=== PATIENT | female | born 1940 | race Caucasian/White ===

== ENCOUNTER → 2018-07-10 08:05 | Outpatient (REF) | payer MEDICARE, SELFPAY ==
[2018-07-10 08:39] LABS: Hemoglobin A1C% w Est Avg Glu 6.6 % (4.0-6.0)
[2018-07-10 08:50] LABS: Add Manual Diff / Slide Review NO; Basophils Percent Auto 0.6 % (0-2); Eosinophils Percent Auto 5.6 % (2-4); Hematocrit 40.1 % (36-46); Hemoglobin 13.8 g/dL (12.0-16.0); Lymphocytes Percent Auto 30.5 % (25-40); Mean Corpuscular HGB Conc 34.4 % (30-36); Mean Corpuscular Hemoglobin 28.3 PG (26-34); Monocytes Percent Auto 10.4 % (3-14); Neutrophils Absolute Auto 2200 /uL (3000-5900); Neutrophils Percent Auto 52.9 % (50-75); Platelet Count 148 X10^3/uL (150-400); Red Blood Cell Count 4.89 X10^6/uL (4.0-5.2); Red Cell Distribution Width 14.5 % (11.6-14.8); White Blood Cell Count 4.1 X10^3/uL (4.5-11.0)
[2018-07-10 08:55] LABS: Blood Urea Nitrogen 14 mg/dL (7-17); Calcium 9.1 mg/dL (8.4-10.2); Carbon Dioxide 29 mmol/L (22-32); Chloride 98 mmol/L (98-107); Estimated Glomerular Filt Rate > 60.0 mL/min (>60); Glucose 83 mg/dL (80-110); HEMOLYSIS < 15 (0-50); Potassium 4.3 mmol/L (3.4-5.1); Sodium 134 mmol/L (137-145)
[2018-07-10 09:22] LABS: Thyroid Stimulating Hormone 2.94 uIU/mL (0.47-4.68)
== END ==
LOC: LAB 08:05
PROVIDERS: Visit Provider Nurse Practitioner Family
DX: E11.9 Type 2 diabetes mellitus without complications (principal)
CPT/HCPCS: 36415; 80048; 83036; 84443; 85025

== ENCOUNTER → 2018-10-09 10:02 | Outpatient (REF) | payer MEDICARE, SELFPAY ==
[2018-10-09 11:11] LABS: Add Manual Diff / Slide Review NO; Basophils Percent Auto 0.7 % (0-2); Hematocrit 44.6 % (36-46); Lymphocytes Percent Auto 28.5 % (25-40); Mean Corpuscular HGB Conc 33.7 % (30-36); Mean Corpuscular Hemoglobin 28.3 PG (26-34); Monocytes Percent Auto 8.6 % (3-14); Neutrophils Absolute Auto 3000 /uL (3000-5900); Neutrophils Percent Auto 56.2 % (50-75); Platelet Count 170 X10^3/uL (150-400); Red Blood Cell Count 5.31 X10^6/uL (4.0-5.2); Red Cell Distribution Width 14.3 % (11.6-14.8); White Blood Cell Count 5.3 X10^3/uL (4.5-11.0)
[2018-10-09 11:32] LABS: BUN Creatinine Ratio 17.1 (6-22); Blood Urea Nitrogen 12 mg/dL (7-17); Calcium 9.5 mg/dL (8.4-10.2); Carbon Dioxide 30 mmol/L (22-32); Chloride 97 mmol/L (98-107); Estimated Glomerular Filt Rate > 60.0 mL/min (>60); Glucose 116 mg/dL (80-110); HEMOLYSIS < 15 (0-50); Potassium 4.7 mmol/L (3.4-5.1); Sodium 139 mmol/L (137-145)
[2018-10-09 12:15] LABS: Hemoglobin A1C% w Est Avg Glu 7.2 % (4.0-6.0)
== END ==
LOC: LAB 10:02
PROVIDERS: Visit Provider Nurse Practitioner Family
DX: E11.9 Type 2 diabetes mellitus without complications (principal)
CPT/HCPCS: 36415; 80048; 83036; 85025

== ENCOUNTER → 2019-04-04 13:31 | Outpatient (ROUT) | payer MEDICARE, SELFPAY ==
[2019-04-04 13:46] LABS: Add Manual Diff / Slide Review NO; Basophils Absolute Auto 0 /uL (0-100); Basophils Percent Auto 0.9 % (0-2); Eosinophils Absolute Auto 200 /uL (0-450); Eosinophils Percent Auto 4.9 % (2-4); Hematocrit 41.1 % (36-46); Hemoglobin 13.8 g/dL (12.0-16.0); Lymphocytes Absolute Auto 1000 /uL (1100-4500); Lymphocytes Percent Auto 30.2 % (25-40); Mean Corpuscular HGB Conc 33.7 % (30-36); Mean Corpuscular Volume 83.2 fL (80-100); Monocytes Absolute Auto 400 /uL (0-900); Monocytes Percent Auto 12.3 % (3-14); Neutrophils Absolute Auto 1800 /uL (1500-7000); Neutrophils Percent Auto 51.7 % (50-75); Platelet Count 166 X10^3/uL (150-400); Red Blood Cell Count 4.94 X10^6/uL (4.0-5.2); Red Cell Distribution Width 14.6 % (11.6-14.8); White Blood Cell Count 3.4 X10^3/uL (4.5-11.0)
[2019-04-04 13:58] LABS: Hemoglobin A1C% w Est Avg Glu 8.4 % (4.0-6.0)
[2019-04-04 14:30] LABS: Blood Urea Nitrogen 9 mg/dL (7-17); Calcium 9.3 mg/dL (8.4-10.2); Carbon Dioxide 25 mmol/L (22-32); Chloride 96 mmol/L (98-107); Estimated Glomerular Filt Rate > 60.0 mL/min (>60); Glucose 129 mg/dL (80-110); HEMOLYSIS < 15 (0-50); Sodium 133 mmol/L (137-145)
[2019-04-04 15:04] LABS: Thyroid Stimulating Hormone 4.27 uIU/mL (0.47-4.68)
[2019-04-04 15:19] LABS: Vitamin B12 > 1000 pg/mL (239-931)
== END ==
PROVIDERS: Visit Provider Nurse Practitioner Family
DX: E11.9 Type 2 diabetes mellitus without complications (principal); E03.9 Hypothyroidism, unspecified; F03.90 Unspecified dementia, unspecified severity, without behavioral disturbance, psychotic disturbance, mood disturbance, and anxiety
CPT/HCPCS: 36415; 80048; 82607; 83036; 84443; 85025

== ENCOUNTER 2019-08-13 14:52 | Emergency (ER) | payer MEDICARE, SELFPAY ==
[2019-08-13 15:07] VITALS: BP 147/59; PULSE 81; RESP 20; TEMP 36.7; O2SAT 100
--- NOTE | 2019-08-13 15:12 | ED_ITS ---
HPI - Dental/Oral General Chief complaint: Dental/Oral Stated complaint: toothache,unbareable pain Time Seen by Provider: 08/13/19 15:06 Source: patient Mode of arrival: Ambulatory Limitations: no limitations History of Present Illness HPI Narrative: Patient is a 79-year-old female with history of dementia presenting with uncontrolled dental pain. She was just started on hydrocodone and Augmentin today. She actually denies any dental pain she is complaining of frequent painful urination. She has no other complaints except that her mouth is dry. Related Data Home Medications Medication Instructions Recorded Confirmed fluticasone propionate 1 spray INTRANASAL DAILY #0 12/16/16 08/13/19 acetaminophen 325 - 650 mg PO Q4HP PRN 08/13/19 08/13/19 acidophilus-sporogenes 2 tab PO DAILY 08/13/19 08/13/19 [Acidophilus Ex Str (L. sporog)] amlodipine 5 mg PO DAILY 08/13/19 08/13/19 aspirin 81 mg PO DAILY 08/13/19 08/13/19 atorvastatin 40 mg PO DAILY 08/13/19 08/13/19 cholecalciferol (vitamin D3) 400 unit PO DAILY 08/13/19 08/13/19 [Vitamin D3] cyanocobalamin (vitamin B-12) 2,000 mcg PO DAILY 08/13/19 08/13/19 [Vitamin B-12] gabapentin 300 mg PO BEDTIME 08/13/19 08/13/19 hydrocortisone 1 applic TOPICAL BID 08/13/19 08/13/19 insulin aspart U-100 [Novolog See Rx Instructions .ROUTE .COMPLEX 08/13/1908/13 Flexpen U-100 Insulin] insulin detemir U-100 [Levemir 3 unit SUBCUT QPM 08/13/19 08/13/19 FlexTouch U-100 Insuln] insulin detemir U-100 [Levemir 25 unit SUBCUT QAM 08/13/19 08/13/19 FlexTouch U-100 Insuln] levothyroxine 88 mcg PO DAILY 08/13/19 08/13/19 loratadine 10 mg PO DAILY 08/13/19 08/13/19 lorazepam 0.5 mg PO BID PRN 08/13/19 08/13/19 magnesium oxide 400 mg PO DAILY 08/13/19 08/13/19 melatonin 3 mg PO BEDTIME 08/13/19 08/13/19 pantoprazole 40 mg PO DAILY 08/13/19 08/13/19 sennosides [Senna Lax] 8.6 mg PO BEDTIME 08/13/19 08/13/19 Previous Rx's Medication Instructions Recorded potassium chloride [Klor-Con M10] 10 meq PO BID #60 tab 08/17/17 Allergies Allergy/AdvReac Type Severity Reaction Status Date / Time rosiglitazone [ROSIGLITAZONE] Allergy Mild ECZEMA Unverified 02/27/18 12:15 cephalexin [CEPHALEXIN] Allergy Unknown Unverified 02/27/18 12:15 cyclobenzaprine Allergy Unknown Unverified 02/27/18 12:15 [CYCLOBENZAPRINE] lisinopril [LISINOPRIL] Allergy Unknown Unverified 02/27/18 12:15 meloxicam [MELOXICAM] Allergy Unknown Unverified 02/27/18 12:15 sitagliptin [From JANUVIA] Allergy Unknown Unverified 02/27/18 12:15 Review of Systems Review of Systems ROS Unobtainable: All systems reviewed & are unremarkable except as noted in HPI and below Constitutional Constitutional: Denies chills, Denies fever(s), Denies lethargy and Denies weakness Eyes Eyes: Denies change in vision, Denies eye discharge, Denies irritation and Denies loss of vision ENT Ears, Nose, Mouth, and Throat: Reports as per HPI Cardiovascular Cardiovascular: Denies chest pain, Denies irregular heart rhythm, Denies lightheadedness, Denies palpitations, Denies dyspnea, Denies dyspnea on exertion and Denies orthopnea Respiratory Respiratory: Denies cough, Denies dyspnea, Denies dyspnea on exertion and Denies wheezing Gastrointestinal Gastrointestinal: Denies abdominal pain, Denies change in bowel habits, Denies diarrhea, Denies nausea and Denies vomiting Musculoskeletal Musculoskeletal: Denies back pain, Denies muscle weakness, Denies numbness and Denies tingling Integumentary/Breasts Skin/Breast: Denies pruritus, Denies erythema, Denies rash and Denies wounds Neurologic Neurologic: Denies loss of vision, Denies numbness, Denies tingling and Denies weakness Endocrine Endocrine: Denies palpitations Allergic/Immunologic Allergic/Immunologic: Denies wheezing [facility] Medical History CVA (cerebral vascular accident) (Acute) Elevated CPK (Acute) Encephalitis, viral (Acute) Hyponatremia (Acute) Urinary retention (Acute) Exam Initial Vital Signs Initial Vital Signs: Vital Signs Temperature 98.1 F 08/13/19 15:07 Pulse Rate 81 08/13/19 15:07 Respiratory Rate 20 08/13/19 15:07 Blood Pressure 147/59 H 08/13/19 15:07 Pulse Oximetry 100 08/13/19 15:07 GENERAL: Pleasant alert elderly and in no acute distress. HEENT: Head atraumatic,EOMI, pupils reactive, face symmetric, moist mucous membranes MOUTH: No dental abscess mouth slightly dry CARDIOVASCULAR: Regular rate and rhythm without murmurs, rubs or gallops. RESPIRATORY: Breath sounds equal bilaterally, no wheezes rales or rhonchi. ABDOMEN: Soft, nontender. Normoactive bowel sounds all 4 quadrants. No guarding or rebound. EXTREMITIES: Normal range of motion, no clubbing or edema. Neurovascularly inta ct NEUROLOGICAL: Alert and oriented x4.Normal gait and speech. Cranial nerves II through XII grossly intact. SKIN: Warm, dry, no laceration, no petechiae, no rashes or lesions. Course Orders Ordered: ED Orders 08/13/19 15:24 Urine Culture Stat Urine Microscopic Stat Vital Signs Vital signs: Vital Signs - 8 hr 08/13/19 15:07 08/13/19 16:32 Temperature 98.1 F Pulse Rate 81 79 Respiratory Rate 20 20 Blood Pressure 147/59 H Blood Pressure [Left Arm] 125/59 L Pulse Oximetry 100 98 MDM - Dental/Oral Lab Data Attestation: I reviewed the patient's lab results. Labs: Lab Results 08/13/19 Range/Units 15:24 Urine RBC 0-1/hpf (0-5/HPF) Urine WBC 30-100/hpf H (0-5/HPF) Ur Squamous Epith Cells 1-5 /hpf (0-5/HPF) Amorphous Sediment 1+ Urine Bacteria Moderate (10-30) H (None) Urine Mucus 1+ H (Negative) Ur Culture Indicated? Specimen cultured Urine Dip Bedside Urine Glucose 500 mg/dl Bedside Urine Bilirubin - Negative Bedside Urine Ketone +/- 5 Urine Specific Vergas 1.015 Bedside Urine Occult Blood +/- Bedside Urine pH 6.0 Bedside Urine Protein + 30 Bedside Urine Urobilinogen - Negative Bedside Urine Nitrite - Negative Bedside Urine Leukocytes +++ 500 Esterase MDM Narrative Medical decision making narrative: POA at bedside updated on patient's symptoms test results. Patient currently already on appropriate medication her both UTI and dental infection. Patient required no additional pain medication in the emergency department Discharge Plan Departure Patient Disposition: Home Clinical Impression: Pain, dental, Acute UTI Discharge Date/Time: 08/13/19 16:45 Instructions: DI for Dental Pain Activity Restrictions/Additional Instructions: *You have been diagnosed with dental pain and UTI *What to do: You are already on medications for dental pain and bladder infection including Augmentin and Vicodin. At this time need follow-up with a dentist. The antibiotic will also treat a UTI which also have *Continue to take medications as directed *Follow up with your primary care provider in 2-3 days *Return to ER if you should have increased confusion, increased swelling face or any new, worsening or concerning symptoms Prescriptions: No Action fluticasone propionate 16 GM spray,suspension 1 spray Intranasal DAILY Qty: 0 RF: 0 potassium chloride [Klor-Con M10] 10 MEQ tablet,ER particles/crystals 10 meq PO BID Qty: 60 RF: 0 atorvastatin 40 mg tablet 40 mg PO DAILY RF: 0 amlodipine 5 mg tablet 5 mg PO DAILY RF: 0 aspirin 81 mg Tablet,Delayed Release (Dr/Ec) 81 mg PO DAILY RF: 0 gabapentin 300 mg capsule 300 mg PO BEDTIME RF: 0 hydrocortisone 2.5 % cream 1 applic TOPICAL BID RF: 0 Acidophilus Ex Str (L. sporog) 35 million- 25 million cell Tablet 2 tab PO DAILY RF: 0 Levemir FlexTouch U-100 Insuln 100 unit/mL (3 mL) insulin pen 25 unit SUBCUT QAM RF: 0 sennosides [Senna Lax] 8.6 mg Tablet 8.6 mg PO BEDTIME RF: 0 cyanocobalamin (vitamin B-12) [Vitamin B-12] 1,000 mcg Tablet 2,000 mcg PO DAILY RF: 0 melatonin 3 mg Tablet 3 mg PO BEDTIME RF: 0 levothyroxine 88 mcg tablet 88 mcg PO DAILY RF: 0 lorazepam 0.5 mg Tablet 0.5 mg PO BID PRN (Reason: Anxiety) RF: 0 cholecalciferol (vitamin D3) [Vitamin D3] 400 unit Tablet 400 unit PO DAILY RF: 0 loratadine 10 mg Tablet 10 mg PO DAILY RF: 0 Novolog Flexpen U-100 Insulin 100 unit/mL (3 mL) insulin pen See Rx Instructions .ROUTE .COMPLEX RF: 0 Levemir FlexTouch U-100 Insuln 100 unit/mL (3 mL) insulin pen 3 unit SUBCUT QPM RF: 0 magnesium oxide 400 mg magnesium Tablet 400 mg PO DAILY RF: 0 acetaminophen 325 MG tablet 325 - 650 mg PO Q4HP PRN (Reason: headache or minor pain) RF: 0 pantoprazole 40 MG tablet,delayed release (DR/EC) 40 mg PO DAILY RF: 0
--- NOTE | 2019-08-13 15:13 | PC.NURSE ---
Pt arrived from [facility]. pt with Dementia and is at baseline mentation. Ambulatory with walker. was sent for uncontrollable tooth pain Pt denies tooth pain at this time. Paperwork reports pt taking hydrocodone-APAP and Augmentin. 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
[2019-08-13 15:48] LABS: Amorphous Sediment Urine 1+; Bacteria Urine Moderate (10-30); RBC Urine 0-1/HPF (0-5/HPF); Squamous Epithelial Cell Urine 1-5 /HPF (0-5/HPF); WBC Urine 30-100/HPF (0-5/HPF)
[2019-08-13 15:49] LABS: Culture Indicated Urine Specimen Cultured; Mucus Urine 1+ (Negative)
[2019-08-13 16:32] VITALS: BP 125/59; PULSE 79; RESP 20; O2SAT 98
== END 2019-08-13 16:45 | disposition home or self-care (01) ==
PROVIDERS: Emergency Provider Emergency Medicine
DX: K08.89 Other specified disorders of teeth and supporting structures (principal); N39.0 Urinary tract infection, site not specified
CPT/HCPCS: 81003; 81015; 87077; 87086; 87186; 99282

== ENCOUNTER → 2019-08-18 10:11 | Outpatient (ROUT) | payer MEDICARE, SELFPAY ==
[2019-08-18 10:51] LABS: Hemoglobin 14.7 g/dL (12.0-16.0); Mean Corpuscular HGB Conc 34.3 % (30-36); Mean Corpuscular Hemoglobin 28.6 PG (26-34); Mean Corpuscular Volume 83.3 fL (80-100); Platelet Count 171 X10^3/uL (150-400); Red Blood Cell Count 5.16 X10^6/uL (4.0-5.2); Red Cell Distribution Width 14.4 % (11.6-14.8)
[2019-08-18 11:09] LABS: BUN Creatinine Ratio 13.3 (6-22); Blood Urea Nitrogen 8 mg/dL (7-17); Calcium 9.4 mg/dL (8.4-10.2); Carbon Dioxide 27 mmol/L (22-32); Chloride 96 mmol/L (98-107); Estimated Glomerular Filt Rate > 60.0 mL/min (>60); Glucose 197 mg/dL (80-110); HEMOLYSIS < 15 (0-50); Potassium 4.1 mmol/L (3.4-5.1); Sodium 134 mmol/L (137-145)
== END ==
PROVIDERS: Visit Provider Nurse Practitioner Family
DX: N39.0 Urinary tract infection, site not specified (principal)
CPT/HCPCS: 36415; 80048; 85027

== ENCOUNTER → 2019-09-16 21:31 | Outpatient (ROUT) | payer MEDICARE, SELFPAY ==
[2019-09-16 21:33] LABS: RBC Urine None Seen (0-5/HPF)
[2019-09-16 21:36] LABS: Appearance Urine UA CLEAR; Bilirubin Urine UA NEGATIVE (NEGATIVE); Color Urine UA YELLOW; Glucose Urine UA NEGATIVE (Negative); Ketones Urine UA NEGATIVE (NEGATIVE); Leukocyte Esterase Urine UA 1+ (NEGATIVE); Nitrite Urine UA NEGATIVE (Negative); Occult Blood Urine UA NEGATIVE (Negative); Protein Urine UA NEGATIVE (Negative); Specific Gravity Urine UA <=1.005 (1.000-1.035); Urobilinogen Urine UA 0.2 E.U./dL (0.2)
[2019-09-16 21:39] LABS: pH Urine UA 7.5 (4.5-8.0)
[2019-09-16 21:47] LABS: Bacteria Urine Many (>30); Culture Indicated Urine Specimen Cultured; WBC Urine 1-5/HPF (0-5/HPF)
== END ==
PROVIDERS: Visit Provider Nurse Practitioner Family
DX: R30.0 Dysuria (principal)
CPT/HCPCS: 81001; 87077; 87086; 87186

== ENCOUNTER → 2019-09-25 17:06 | Outpatient (ROUT) | payer MEDICARE, SELFPAY ==
[2019-09-25 17:11] LABS: Appearance Urine UA CLOUDY; Bilirubin Urine UA NEGATIVE (NEGATIVE); Color Urine UA YELLOW; Glucose Urine UA NEGATIVE (Negative); Ketones Urine UA NEGATIVE (NEGATIVE); Leukocyte Esterase Urine UA 1+ (NEGATIVE); Nitrite Urine UA POSITIVE (Negative); Occult Blood Urine UA NEGATIVE (Negative); Protein Urine UA NEGATIVE (Negative); Urobilinogen Urine UA 0.2 E.U./dL (0.2)
[2019-09-25 17:19] LABS: Bacteria Urine Many (>30); Culture Indicated Urine Specimen Cultured; RBC Urine 0-1/HPF (0-5/HPF); Squamous Epithelial Cell Urine 0-1 /HPF (0-5/HPF); WBC Urine 10-30/HPF (0-5/HPF)
== END ==
PROVIDERS: Visit Provider Nurse Practitioner Family
DX: N39.0 Urinary tract infection, site not specified (principal); R30.0 Dysuria
CPT/HCPCS: 81001; 87077; 87086; 87186

== ENCOUNTER → 2019-09-26 07:15 | Outpatient (ROUT) | payer MEDICARE, SELFPAY ==
[2019-09-26 08:16] LABS: Hemoglobin A1C% w Est Avg Glu 8.6 % (4.0-6.0)
[2019-09-26 08:19] LABS: Add Manual Diff / Slide Review NO; Basophils Absolute Auto 0 /uL (0-100); Basophils Percent Auto 0.8 % (0-2); Eosinophils Absolute Auto 300 /uL (0-450); Eosinophils Percent Auto 8.1 % (2-4); Hematocrit 40.2 % (36-46); Hemoglobin 13.6 g/dL (12.0-16.0); Lymphocytes Absolute Auto 1300 /uL (1100-4500); Lymphocytes Percent Auto 33.1 % (25-40); Mean Corpuscular HGB Conc 33.8 % (30-36); Mean Corpuscular Hemoglobin 28.4 PG (26-34); Mean Corpuscular Volume 84.1 fL (80-100); Monocytes Absolute Auto 300 /uL (0-900); Monocytes Percent Auto 8.8 % (3-14); Neutrophils Absolute Auto 1900 /uL (1500-7000); Neutrophils Percent Auto 49.2 % (50-75); Platelet Count 151 X10^3/uL (150-400); Red Blood Cell Count 4.78 X10^6/uL (4.0-5.2); Red Cell Distribution Width 14.6 % (11.6-14.8); White Blood Cell Count 3.8 X10^3/uL (4.5-11.0)
[2019-09-26 08:29] LABS: BUN Creatinine Ratio 12.9 (6-22); Blood Urea Nitrogen 9 mg/dL (7-17); Calcium 9.1 mg/dL (8.4-10.2); Carbon Dioxide 24 mmol/L (22-32); Chloride 99 mmol/L (98-107); Estimated Glomerular Filt Rate > 60.0 mL/min (>60); Glucose 116 mg/dL (80-110); HEMOLYSIS < 15 (0-50); Potassium 4.8 mmol/L (3.4-5.1); Sodium 133 mmol/L (137-145)
[2019-09-26 08:59] LABS: Thyroid Stimulating Hormone 4.12 uIU/mL (0.47-4.68)
[2019-09-26 09:16] LABS: Vitamin B12 > 1000 pg/mL (239-931)
== END ==
PROVIDERS: Visit Provider Nurse Practitioner Family
DX: E11.9 Type 2 diabetes mellitus without complications (principal); R41.0 Disorientation, unspecified; N39.0 Urinary tract infection, site not specified
CPT/HCPCS: 36415; 80048; 82607; 83036; 84443; 85025

== ENCOUNTER → 2019-10-27 08:01 | Outpatient (ROUT) | payer MEDICARE, SELFPAY ==
[2019-10-27 08:24] LABS: Add Manual Diff / Slide Review NO; Basophils Absolute Auto 0 /uL (0-100); Basophils Percent Auto 0.7 % (0-2); Eosinophils Absolute Auto 300 /uL (0-450); Eosinophils Percent Auto 6.9 % (2-4); Hematocrit 41.2 % (36-46); Lymphocytes Absolute Auto 1100 /uL (1100-4500); Lymphocytes Percent Auto 24.8 % (25-40); Mean Corpuscular HGB Conc 34.1 % (30-36); Mean Corpuscular Hemoglobin 28.7 PG (26-34); Mean Corpuscular Volume 84.2 fL (80-100); Monocytes Absolute Auto 400 /uL (0-900); Monocytes Percent Auto 8.3 % (3-14); Neutrophils Absolute Auto 2600 /uL (1500-7000); Neutrophils Percent Auto 59.3 % (50-75); Platelet Count 147 X10^3/uL (150-400); Red Blood Cell Count 4.89 X10^6/uL (4.0-5.2); Red Cell Distribution Width 14.6 % (11.6-14.8); White Blood Cell Count 4.3 X10^3/uL (4.5-11.0)
[2019-10-27 08:42] LABS: Alanine Aminotransferase 77 IU/L (<35); Albumin 3.7 g/dL (3.5-5.0); Albumin Globulin Ratio 1.1 (1.0-2.8); Alkaline Phosphatase 109 U/L (38-126); Aspartate Aminotransferase 64 IU/L (14-36); BUN Creatinine Ratio 13.3 (6-22); Bilirubin Total 1.1 mg/dL (0.2-1.3); Blood Urea Nitrogen 8 mg/dL (7-17); Calcium 9.2 mg/dL (8.4-10.2); Carbon Dioxide 28 mmol/L (22-32); Chloride 100 mmol/L (98-107); Estimated Glomerular Filt Rate > 60.0 mL/min (>60); Globulin 3.4 g/dL (1.7-4.1); Glucose 96 mg/dL (80-110); HEMOLYSIS < 15 (0-50); Potassium 4.4 mmol/L (3.4-5.1); Sodium 136 mmol/L (137-145); Total Protein 7.1 g/dL (6.3-8.2)
== END ==
PROVIDERS: Visit Provider Registered Nurse
DX: R45.1 Restlessness and agitation (principal)
CPT/HCPCS: 36415; 80053; 85025

== ENCOUNTER → 2019-10-28 13:50 | Outpatient (ROUT) | payer MEDICARE, SELFPAY ==
[2019-10-28 13:52] LABS: Bacteria Urine None Seen; RBC Urine None Seen (0-5/HPF)
[2019-10-28 13:54] LABS: Appearance Urine UA CLEAR; Bilirubin Urine UA NEGATIVE (NEGATIVE); Color Urine UA YELLOW; Glucose Urine UA NEGATIVE (Negative); Ketones Urine UA NEGATIVE (NEGATIVE); Leukocyte Esterase Urine UA TRACE (NEGATIVE); Nitrite Urine UA NEGATIVE (Negative); Occult Blood Urine UA NEGATIVE (Negative); Protein Urine UA NEGATIVE (Negative)
[2019-10-28 14:10] LABS: Culture Indicated Urine Cult Not Indicated; Squamous Epithelial Cell Urine 5-10 /HPF (0-5/HPF); WBC Urine 5-10/HPF (0-5/HPF)
== END ==
PROVIDERS: Visit Provider Nurse Practitioner Family
DX: R35.0 Frequency of micturition (principal)
CPT/HCPCS: 81001

== ENCOUNTER 2019-11-24 17:47 | Emergency (ER) | payer MEDICARE, SELFPAY ==
[2019-11-24 18:00] VITALS: BP 146/56; PULSE 77; RESP 18; O2SAT 97
--- NOTE | 2019-11-24 18:00 | ED.CHESTPAIN ---
HPI - Chest Pain General Chief Complaint: Chest Pain Stated Complaint: chest pain Time Seen by Provider: 11/24/19 17:59 Source: patient and EMS Mode of arrival: EMS Limitations: no limitations History of Present Illness HPI narrative: 79-year-old female nonsmoker is pleasantly confused and presents by EMS with the chief complaint of an episode of chest pain this morning which is long since resolved. She is not the greatest historian but denies any provocation, palliation or radiation. She denies cardiac equivalent such as weakness, lightheadedness, vomiting, diaphoresis or other bothersome symptoms. Once her friends arrived they state that she has had frequent trouble with urination including UTIs, incontinence MD complaint: chest pain Onset (ago): hour(s) Duration: now resolved Severity: mild Quality: tightness Pain radiation: none Relieving factors: nothing Exacerbating factors: nothing Treatments prior to arrival chest pain: none Related Data On Oral Contraceptives: No Home Medications Medication Instructions Recorded Confirmed fluticasone propionate 1 spray INTRANASAL DAILY #0 12/16/16 08/13/19 acetaminophen 325 - 650 mg PO Q4HP PRN 08/13/19 08/13/19 acidophilus-sporogenes 2 tab PO DAILY 08/13/19 08/13/19 [Acidophilus Ex Str (L. sporog)] amlodipine 5 mg PO DAILY 08/13/19 08/13/19 aspirin 81 mg PO DAILY 08/13/19 08/13/19 atorvastatin 40 mg PO DAILY 08/13/19 08/13/19 cholecalciferol (vitamin D3) 400 unit PO DAILY 08/13/19 08/13/19 [Vitamin D3] cyanocobalamin (vitamin B-12) 2,000 mcg PO DAILY 08/13/19 08/13/19 [Vitamin B-12] gabapentin 300 mg PO BEDTIME 08/13/19 08/13/19 hydrocortisone 1 applic TOPICAL BID 08/13/19 08/13/19 insulin aspart U-100 [Novolog See Rx Instructions .ROUTE .COMPLEX 08/13/19 08/13/19 Flexpen U-100 Insulin] insulin detemir U-100 [Levemir 3 unit SUBCUT QPM 08/13/19 08/13/19 FlexTouch U-100 Insuln] insulin detemir U-100 [Levemir 25 unit SUBCUT QAM 08/13/19 08/13/19 FlexTouch U-100 Insuln] levothyroxine 88 mcg PO DAILY 08/13/19 08/13/19 loratadine 10 mg PO DAILY 08/13/19 08/13/19 lorazepam 0.5 mg PO BID PRN 08/13/19 08/13/19 magnesium oxide 400 mg PO DAILY 08/13/19 08/13/19 melatonin 3 mg PO BEDTIME 08/13/19 08/13/19 pantoprazole 40 mg PO DAILY 08/13/19 08/13/19 sennosides [Senna Lax] 8.6 mg PO BEDTIME 08/13/19 08/13/19 Lactobacillus acidophilus 2 cap PO DAILY 11/24/19 11/24/19 [Acidophilus] Novolog U-100 Insulin aspart See Rx Instructions .ROUTE .COMPLEX 11/24/19 11/24/19 acetaminophen 325 - 650 mg PO Q4H PRN 11/24/19 11/24/19 amlodipine 5 mg PO DAILY 11/24/19 11/24/19 aspirin 81 mg PO DAILY 11/24/19 11/24/19 atorvastatin 40 mg PO DAILY 11/24/19 11/24/19 cholecalciferol (vitamin D3) 400 unit PO DAILY 11/24/19 11/24/19 [Vitamin D3] citalopram 10 mg PO DAILY 11/24/19 11/24/19 cyanocobalamin (vitamin B-12) 2,000 mcg PO DAILY 11/24/19 11/24/19 [Vitamin B-12] fluticasone propionate 1 spray INTRANASAL DAILY 11/24/19 11/24/19 gabapentin 300 mg PO BEDTIME 11/24/19 11/24/19 hydrocortisone 1 applic TOPICAL BID 11/24/19 11/24/19 insulin detemir U-100 [Levemir 3 unit SUBCUT QPM 11/24/19 11/24/19 U-100 Insulin] insulin detemir U-100 [Levemir 25 unit SUBCUT QAM 11/24/19 11/24/19 U-100 Insulin] levothyroxine 88 mcg PO DAILY 11/24/19 11/24/19 loratadine 10 mg PO DAILY PRN 11/24/19 11/24/19 magnesium oxide 400 mg PO DAILY 11/24/19 11/24/19 melatonin 3 mg PO BEDTIME PRN 11/24/19 11/24/19 multivitamin with minerals 1 tab PO DAILY 11/24/19 11/24/19 pantoprazole 40 mg PO DAILY 11/24/19 11/24/19 potassium chloride 10 meq PO DAILY 11/24/19 11/24/19 sennosides [senna] 8.6 mg PO BEDTIME 11/24/19 11/24/19 Previous Rx's Medication Instructions Recorded potassium chloride [Klor-Con M10] 10 meq PO BID #60 tab 08/17/17 amoxicillin-pot clavulanate 1 tab PO BID #20 tab 11/24/19 [Augmentin] Allergies Allergy/AdvReac Type Severity Reaction Status Date / Time rosiglitazone [ROSIGLITAZONE] Allergy Mild ECZEMA Unverified 08/19/19 09:18 cephalexin [CEPHALEXIN] Allergy Unknown Unverified 08/19/19 09:18 cyclobenzaprine Allergy Unknown Unverified 08/19/19 09:18 [CYCLOBENZAPRINE] lisinopril [LISINOPRIL] Allergy Unknown Unverified 08/19/19 09:18 meloxicam [MELOXICAM] Allergy Unknown Unverified 08/19/19 09:18 sitagliptin [From JANUVIA] Allergy Unknown Unverified 08/19/19 09:18 Review of Systems Constitutional Constitutional: Denies chills, Denies fatigue, Denies fever(s), Denies frequent falls, Denies lethargy and Denies weakness Eyes Eyes: Denies change in vision, Denies eye discharge, Denies irritation and Denies loss of vision ENT Ears, Nose, Mouth, and Throat: Denies change in voice, Denies dizziness, Denies neck pain, Denies sore throat and Denies throat swelling Cardiovascular Cardiovascular: Reports chest pain, Denies irregular heart rhythm, Denies lightheadedness, Denies palpitations, Denies dyspnea, Denies dyspnea on exertion and Denies orthopnea Respiratory Respiratory: Denies cough, Denies dyspnea, Denies dyspnea on exertion and Denies wheezing Gastrointestinal Gastrointestinal: Denies abdominal pain, Denies change in bowel habits, Denies diarrhea, Denies nausea and Denies vomiting Genitourinary Genitourinary: Denies hematuria, Denies flank pain, Denies urinary incontinence and Denies urinary urgency Musculoskeletal Musculoskeletal: Denies back pain, Denies muscle weakness, Denies neck pain, Denies numbness and Denies tingling Integumentary/Breasts Skin/Breast: Denies pruritus, Denies erythema, Denies rash and Denies wounds Neurologic Neurologic: Denies behavioral changes, Denies confusion, Denies dizziness, Denies frequent falls, Denies loss of vision, Denies numbness, Denies tingling and Denies weakness Psychiatric Psychiatric: Denies anxiety, Denies behavioral changes, Denies confusion, Denies depression, Denies homicidal ideation and Denies suicidal ideation Endocrine Endocrine: Denies fatigue, Denies flushing and Denies palpitations Hematologic/Lymphatic Hematologic/Lymphatic: Denies easy bruising Allergic/Immunologic Allergic/Immunologic: Denies urticaria, Denies throat swelling and Denies wheezing Patient History Medical History CVA (cerebral vascular accident) (Acute) Elevated CPK (Acute) Encephalitis, viral (Acute) Hyponatremia (Acute) Urinary retention (Acute) Social History Smoking Status: Unknown if ever smoked alcohol intake frequency: other Substance Use Type: does not use Exam Initial Vital Signs Initial Vital Signs: Vital Signs Pulse Rate 77 11/24/19 18:00 Respiratory Rate 18 11/24/19 18:00 Blood Pressure 146/56 H 11/24/19 18:00 Pulse Oximetry 97 11/24/19 18:00 Const General: cooperative and well developed Nutritional Appearance: well nourished Orientation: alert, awake, oriented x3 and not confused [facility] Head: normocephalic and atraumatic Ears: external ears normal and TM's normal bilaterally Nose: external nose normal and No nasal discharge Face and sinus: sinuses nontender, face symmetric, no sinus tenderness and No dry mucous membranes Mouth: oral mucosae normal and moist mucous membranes Teeth and gingiva: dentition normal Throat: tonsils normal and uvula midline Eyes General: appearance normal, both eyes and all related structures Eyelids: eyelids normal Conjunctivae: conjunctivae normal Sclera: sclerae normal Pupils: PERRL EOM: EOM intact bilaterally Neck Neck: normal visual inspection, trachea midline, No lymphadenopathy, No midline deformity and No JVD Lymphatic: No lymphedema Chest Chest: normal inspection of the chest Resp Effort & Inspection: normal respiratory effort, able to speak in complete sentences, no respiratory distress and no use of accessory muscles Auscultation: clear to auscultation bilaterally, no rales, no rhonchi and no wheezes Cardio Rate: regular rate Rhythm: regular rhythm Heart Sounds: no click, no gallops, no murmurs and no rubs Pulses: normal peripheral pulses GI Inspection: non-distended Palpation: soft, no hepatosplenomegaly, No guarding, No pulsatile mass and No tender Auscultation: normal bowel sounds Back/Spine/Pelvis Back: No CVA tenderness Cervical Spine: cervical ROM normal and No pain with cervical ROM Thoracic/Lumbar Spine: thoracic and lumbar spine normal to inspection Skin General: no rashes or lesions noted, No jaundice and No petechiae Neuro General: alert, gait normal and no focal motor deficits Speech: speech normal Extrem General: full ROM, no clubbing, cyanosis or edema, no pedal edema and no calf tenderness Psych Appearance: well kempt Mental Status: mental status grossly normal Attitude: cooperative Thought Content: normal and suicidality Judgment: judgment good Course Orders Ordered: ED Orders 11/24/19 18:52 Urine Culture Stat Urine Microscopic Stat Vital Signs Vital signs: Vital Signs - 8 hr 11/24/19 19:44 Pulse Rate 72 Respiratory Rate 18 Blood Pressure 147/50 H Pulse Oximetry 97 MDM - Chest Pain Lab Data Result diagrams: 11/24/19 17:45 11/24/19 17:45 Labs: Lab Results 11/24/19 11/24/19 11/24/19 Range/Units 17:45 17:45 17:45 WBC 5.0 (4.5-11.0) X10^3/uL RBC 4.72 (4.0-5.2) X10^6/uL Hgb 13.6 (12.0-16.0) g/dL Hct 39.8 (36-46) % MCV 84.4 (80-100) fL MCH 28.8 (26-34) PG MCHC 34.1 (30-36) % RDW 14.4 (11.6-14.8) % Plt Count 176 (150-400) X10^3/uL Neut % (Auto) 64.2 (50-75) % Lymph % (Auto) 19.8 L (25-40) % Upson % (Auto) 10.2 (3-14) % Eos % (Auto) 5.2 H (2-4) % Baso % (Auto) 0.6 (0-2) % Neut # (Auto) 3200 (3485-1481) /uL Lymph # (Auto) 1000 L (7334-9894) /uL Upson # (Auto) 500 (0-900) /uL Eos # (Auto) 300 (0-450) /uL Baso # (Auto) 0 (0-100) /uL PT 12.0 (10.1-12.7) SECONDS INR 1.0 (0.9-1.3) APTT 63 H (26.4-36.2) SECONDS Sodium 130 L (137-145) mmol/L Potassium 4.7 (3.4-5.1) mmol/L Chloride 94 L (98-107) mmol/L Carbon Dioxide 26 (22-32) mmol/L BUN 12 (7-17) mg/dL Creatinine 0.70 (0.52-1.04) mg/dL Estimated GFR > 60.0 (>60) mL/min BUN/Creatinine Ratio 17.1 (6-22) Glucose 251 H (80-110) mg/dL Calcium 8.9 (8.4-10.2) mg/dL Total Bilirubin 0.8 (0.2-1.3) mg/dL AST 53 H (14-36) IU/L ALT 62 H (<35) IU/L Alkaline Phosphatase 145 H (38-126) U/L Total Creatine Kinase 31 (30-135) U/L CK-MB (CK-2) TNP CK-MB (CK-2) Rel Index TNP Troponin I < 0.012 (0.01-0.034) ng/mL Total Protein 7.3 (6.3-8.2) g/dL Albumin 3.9 (3.5-5.0) g/dL Globulin 3.4 (1.7-4.1) g/dL Albumin/Globulin Ratio 1.1 (1.0-2.8) Lipase 84 (23-300) U/L Urine RBC (0-5/HPF) Urine WBC (0-5/HPF) Ur Squamous Epith Cells (0-5/HPF) Ur Renal Epithelial Cell (0-1/HPF) Urine Bacteria (None) Urine Mucus (Negative) Ur Culture Indicated? 11/24/19 Range/Units 18:52 WBC (4.5-11.0) X10^3/uL RBC (4.0-5.2) X10^6/uL Hgb (12.0-16.0) g/dL Hct (36-46) % MCV (80-100) fL MCH (26-34) PG MCHC (30-36) % RDW (11.6-14.8) % Plt Count (150-400) X10^3/uL Neut % (Auto) (50-75) % Lymph % (Auto) (25-40) % Upson % (Auto) (3-14) % Eos % (Auto) (2-4) % Baso % (Auto) (0-2) % Neut # (Auto) (0545-6146) /uL Lymph # (Auto) (7634-5908) /uL Upson # (Auto) (0-900) /uL Eos # (Auto) (0-450) /uL Baso # (Auto) (0-100) /uL PT (10.1-12.7) SECONDS INR (0.9-1.3) APTT (26.4-36.2) SECONDS Sodium (137-145) mmol/L Potassium (3.4-5.1) mmol/L Chloride (98-107) mmol/L Carbon Dioxide (22-32) mmol/L BUN (7-17) mg/dL Creatinine (0.52-1.04) mg/dL Estimated GFR (>60) mL/min BUN/Creatinine Ratio (6-22) Glucose (80-110) mg/dL Calcium (8.4-10.2) mg/dL Total Bilirubin (0.2-1.3) mg/dL AST (14-36) IU/L ALT (<35) IU/L Alkaline Phosphatase (38-126) U/L Total Creatine Kinase (30-135) U/L CK-MB (CK-2) CK-MB (CK-2) Rel Index Troponin I (0.01-0.034) ng/mL Total Protein (6.3-8.2) g/dL Albumin (3.5-5.0) g/dL Globulin (1.7-4.1) g/dL Albumin/Globulin Ratio (1.0-2.8) Lipase (23-300) U/L Urine RBC None seen (0-5/HPF) Urine WBC 10-30/hpf H (0-5/HPF) Ur Squamous Epith Cells 0-1 /hpf (0-5/HPF) Ur Renal Epithelial Cell 0-1/hpf (0-1/HPF) Urine Bacteria Moderate (10-30) H (None) Urine Mucus 1+ H (Negative) Ur Culture Indicated? Specimen cultured Urine Dip Bedside Urine Glucose 100 mg/dl Bedside Urine Bilirubin - Negative Bedside Urine Ketone - Negative Urine Specific Elkins 1.010 Bedside Urine Occult Blood - Negative Bedside Urine pH 6.5 Bedside Urine Protein - Negative Bedside Urine Urobilinogen - Negative Bedside Urine Nitrite - Negative Bedside Urine Leukocytes + 70 Esterase Imaging Data Chest x-ray: Radiologist's Impression: [address] [address] XRay Report Signed Patient: Roberta Palmer KMR#: [id number] : [id number]:[id number] Age/Sex: 79 / FDate of Service: 11/24/19 Loc: ED Accession Number: [id number] Procedure: XR chest 1V Ordering Provider: Ismael Simmons D.O. PROCEDURE: XR CHEST 1V INDICATIONS: chest pain TECHNIQUE: One view of the chest was acquired. COMPARISON: [facility], , CHEST FOR PICC PLACEMENT, 08/17/2017, 12:34. FINDINGS: Surgical changes and devices: None. Lungs and pleura: Lungs are clear. No pleural effusions or pneumothorax. Mediastinum: Mediastinal contours appear normal. Heart size is normal. Bones and chest wall: No suspicious bony lesions. Overlying soft tissues appear unremarkable. IMPRESSION: No evidence acute pulmonary process. Dictated by: Mike Birmingham M.D. on 11/24/2019 at 18:37 Approved by: Mike Birmingham M.D. on 11/24/2019 at 18:38 MDM Narrative Medical decision making narrative: 79F pleasantly confused with no ongoing symptoms. Her exam is very reassuring as are labs. Sodium is a bit low (130) but not significantly lower than her baseline. Urine consistent with UTI, cultures consulted. Patient at baseline. Questions answered to apparent satisfaction of friends and family. Return precautions given. Discharge Plan Departure Patient Disposition: Home Clinical Impression: Acute UTI, Atypical chest pain Discharge Date/Time: 11/24/19 19:52 Instructions: DI for Urinary Tract Infection (UTI) Activity Restrictions/Additional Instructions: *You have been diagnosed with [UTI, atypical chest pain resolved] *What to do: *Take medications as directed: *Follow up with your primary care provider in 2-3 days, call for an appointment. Let them know you were seen in the Emergency Department and that we ask that you be seen in follow up *Return to ER if you should have any new, worsening or concerning symptoms Prescriptions: New amoxicillin-pot clavulanate [Augmentin] 875-125 mg tablet 1 tab PO BID Qty: 20 RF: 0 No Action fluticasone propionate 16 GM spray,suspension 1 spray Intranasal DAILY Qty: 0 RF: 0 potassium chloride [Klor-Con M10] 10 MEQ tablet,ER particles/crystals 10 meq PO BID Qty: 60 RF: 0 atorvastatin 40 mg tablet 40 mg PO DAILY RF: 0 amlodipine 5 mg tablet 5 mg PO DAILY RF: 0 aspirin 81 mg Tablet,Delayed Release (Dr/Ec) 81 mg PO DAILY RF: 0 gabapentin 300 mg capsule 300 mg PO BEDTIME RF: 0 hydrocortisone 2.5 % cream 1 applic TOPICAL BID RF: 0 Acidophilus Ex Str (L. sporog) 35 million- 25 million cell Tablet 2 tab PO DAILY RF: 0 Levemir FlexTouch U-100 Insuln 100 unit/mL (3 mL) insulin pen 25 unit SUBCUT QAM RF: 0 sennosides [Senna Lax] 8.6 mg Tablet 8.6 mg PO BEDTIME RF: 0 cyanocobalamin (vitamin B-12) [Vitamin B-12] 1,000 mcg Tablet 2,000 mcg PO DAILY RF: 0 melatonin 3 mg Tablet 3 mg PO BEDTIME RF: 0 levothyroxine 88 mcg tablet 88 mcg PO DAILY RF: 0 lorazepam 0.5 mg Tablet 0.5 mg PO BID PRN (Reason: Anxiety) RF: 0 cholecalciferol (vitamin D3) [Vitamin D3] 400 unit Tablet 400 unit PO DAILY RF: 0 loratadine 10 mg Tablet 10 mg PO DAILY RF: 0 Novolog Flexpen U-100 Insulin 100 unit/mL (3 mL) insulin pen See Rx Instructions .ROUTE .COMPLEX RF: 0 Levemir FlexTouch U-100 Insuln 100 unit/mL (3 mL) insulin pen 3 unit SUBCUT QPM RF: 0 magnesium oxide 400 mg magnesium Tablet 400 mg PO DAILY RF: 0 acetaminophen 325 MG tablet 325 - 650 mg PO Q4HP PRN (Reason: headache or minor pain) RF: 0 pantoprazole 40 MG tablet,delayed release (DR/EC) 40 mg PO DAILY RF: 0 atorvastatin 40 mg Tablet 40 mg PO DAILY RF: 0 sennosides [senna] 8.6 mg Tablet 8.6 mg PO BEDTIME RF: 0 acetaminophen 325 mg Tablet 325 - 650 mg PO Q4H PRN (Reason: pain or headache) RF: 0 citalopram 10 mg Tablet 10 mg PO DAILY RF: 0 cyanocobalamin (vitamin B-12) [Vitamin B-12] 1,000 mcg Tablet 2,000 mcg PO DAILY RF: 0 potassium chloride 10 mEq Tablet Extended Release 10 meq PO DAILY RF: 0 melatonin 3 mg Tablet 3 mg PO BEDTIME PRN (Reason: Insomnia) RF: 0 amlodipine 5 mg Tablet 5 mg PO DAILY RF: 0 aspirin 81 mg Tablet,Delayed Release (Dr/Ec) 81 mg PO DAILY RF: 0 levothyroxine 88 mcg Tablet 88 mcg PO DAILY RF: 0 pantoprazole 40 mg Tablet,Delayed Release (Dr/Ec) 40 mg PO DAILY RF: 0 gabapentin 300 mg Capsule 300 mg PO BEDTIME RF: 0 hydrocortisone 2.5 % Cream 1 applic TOPICAL BID RF: 0 multivitamin with minerals Tablet 1 tab PO DAILY RF: 0 Lactobacillus acidophilus [Acidophilus] Capsule 2 cap PO DAILY RF: 0 fluticasone propionate 50 mcg/actuation [place],Suspension 1 spray INTRANASAL DAILY RF: 0 loratadine 10 mg Tablet 10 mg PO DAILY PRN (Reason: Allergy Symptoms) RF: 0 cholecalciferol (vitamin D3) [Vitamin D3] 400 unit Capsule 400 unit PO DAILY RF: 0 Levemir U-100 Insulin 100 unit/mL Solution 25 unit SUBCUT QAM RF: 0 Levemir U-100 Insulin 100 unit/mL Solution 3 unit SUBCUT QPM RF: 0 magnesium oxide 400 mg magnesium Tablet 400 mg PO DAILY RF: 0 Novolog U-100 Insulin aspart See Rx Instructions .ROUTE .COMPLEX RF: 0 Referrals: Kassy Monique MD [Primary Care Provider] -
[2019-11-24 18:11] LABS: Add Manual Diff / Slide Review NO; Basophils Absolute Auto 0 /uL (0-100); Basophils Percent Auto 0.6 % (0-2); Eosinophils Absolute Auto 300 /uL (0-450); Eosinophils Percent Auto 5.2 % (2-4); Hematocrit 39.8 % (36-46); Hemoglobin 13.6 g/dL (12.0-16.0); Lymphocytes Absolute Auto 1000 /uL (1100-4500); Lymphocytes Percent Auto 19.8 % (25-40); Mean Corpuscular HGB Conc 34.1 % (30-36); Mean Corpuscular Hemoglobin 28.8 PG (26-34); Mean Corpuscular Volume 84.4 fL (80-100); Monocytes Absolute Auto 500 /uL (0-900); Monocytes Percent Auto 10.2 % (3-14); Neutrophils Absolute Auto 3200 /uL (1500-7000); Neutrophils Percent Auto 64.2 % (50-75); Platelet Count 176 X10^3/uL (150-400); Red Blood Cell Count 4.72 X10^6/uL (4.0-5.2); Red Cell Distribution Width 14.4 % (11.6-14.8)
[2019-11-24 18:13] VITALS: BP 146/56; PULSE 70; RESP 20; TEMP 37.1; O2SAT 97
[2019-11-24 18:15] LABS: PTT Partial Thromboplastin Tim 63 SECONDS (26.4-36.2)
[2019-11-24 18:17] LABS: Alanine Aminotransferase 62 IU/L (<35); Albumin 3.9 g/dL (3.5-5.0); Albumin Globulin Ratio 1.1 (1.0-2.8); Alkaline Phosphatase 145 U/L (38-126); Aspartate Aminotransferase 53 IU/L (14-36); BUN Creatinine Ratio 17.1 (6-22); Bilirubin Total 0.8 mg/dL (0.2-1.3); Blood Urea Nitrogen 12 mg/dL (7-17); Calcium 8.9 mg/dL (8.4-10.2); Carbon Dioxide 26 mmol/L (22-32); Chloride 94 mmol/L (98-107); Creatine Kinase 31 U/L (30-135); Estimated Glomerular Filt Rate > 60.0 mL/min (>60); Globulin 3.4 g/dL (1.7-4.1); Glucose 251 mg/dL (80-110); HEMOLYSIS 23 (0-50); Lipase 84 U/L (23-300); Potassium 4.7 mmol/L (3.4-5.1); Sodium 130 mmol/L (137-145); Total Protein 7.3 g/dL (6.3-8.2)
[2019-11-24 18:28] LABS: Troponin I < 0.012 ng/mL (0.01-0.034)
[2019-11-24 19:06] LABS: RBC Urine None Seen (0-5/HPF)
[2019-11-24 19:12] LABS: WBC Urine 10-30/HPF (0-5/HPF)
[2019-11-24 19:13] LABS: Bacteria Urine Moderate (10-30); Culture Indicated Urine Specimen Cultured; Mucus Urine 1+ (Negative); Renal Epithelial Cells Urine 0-1/HPF (0-1/HPF); Squamous Epithelial Cell Urine 0-1 /HPF (0-5/HPF)
[2019-11-24 19:44] VITALS: BP 147/50; PULSE 72; RESP 18; O2SAT 97
== END 2019-11-24 19:52 | disposition home or self-care (01) ==
PROVIDERS: Emergency Provider Emergency Medicine; Family Provider Nurse Practitioner Family; PCP Internal Medicine
DX: R07.89 Other chest pain (principal); N39.0 Urinary tract infection, site not specified
CPT/HCPCS: 36415; 71045; 80053; 81003; 81015; 82550; 83690; 84484; 85025; 85610; 85730; 87077; 87086; 87186; 93005; 99284; 99285

== ENCOUNTER 2019-12-09 15:12 | Emergency (ER) | payer MEDICARE, SELFPAY ==
[2019-12-09 15:33] VITALS: BP 151/65; PULSE 66; RESP 12; TEMP 37; O2SAT 98
[2019-12-09 15:34] VITALS: BP 151/65; PULSE 66; RESP 16; TEMP 37; O2SAT 98
--- NOTE | 2019-12-09 15:47 | DI.RAD.S_ITS ---
PROCEDURE: XR THORACIC SPINE 3V INDICATIONS: pain sp fall TECHNIQUE: 3 views of the thoracic spine were acquired. COMPARISON: [facility], , CHEST 2 VIEW, 01/24/2013, 14:25. FINDINGS: Bones: No fractures or dislocations. No suspicious bony lesions. Diffuse discogenic changes. Soft tissues: No paravertebral stripe thickening. IMPRESSION: No acute fracture. Diffuse spondylosis and facet arthropathy Dictated by: Channing Tao M.D. on 12/09/2019 at 16:57 Approved by: Channing Tao M.D. on 12/09/2019 at 16:59
--- NOTE | 2019-12-09 15:47 | DI.RAD.S_ITS ---
PROCEDURE: XR HIP W PEL IF DONE LT 2V INDICATIONS: pain sp fall TECHNIQUE: AP pelvis with lateral view(s) of the left hip(s). COMPARISON: None. FINDINGS: Bones: No fractures or dislocations. Pelvic ring appears intact. No suspicious bony lesions. Left hip arthroplasty expected postoperative alignment. Hardware appears intact. Bilateral moderate hip joint degeneration. Lower lumbar spondylosis Soft tissues: The visualized bowel gas pattern is normal. No suspicious soft tissue calcifications. IMPRESSION: No fracture identified Degenerative and postsurgical changes as above Dictated by: Channing Tao M.D. on 12/09/2019 at 16:54 Approved by: Channing Tao M.D. on 12/09/2019 at 16:57
--- NOTE | 2019-12-09 15:47 | DI.CT.S_ITS ---
PROCEDURE: CT HEAD/BRAIN WO CON INDICATIONS: glf, hit head TECHNIQUE: Noncontrast 4.5 mm thick angled axial sections acquired from the foramen magnum to the vertex, with coronal and sagittal reformats. For radiation dose reduction, the following was used: automated exposure control, adjustment of mA and/or kV according to patient size. COMPARISON: [facility], MR, BRAIN W&WO CONTRAST, 08/14/2017, 15:35. [facility], MR, BRAIN WITHOUT CONTRAST, 08/05/2017, 14:33. [facility], CT, HEAD WITHOUT CONTRAST, 08/04/2017, 18:36. FINDINGS: Image quality: Excellent. CSF spaces: Basal cisterns are patent. No extra-axial fluid collections. The ventricles are symmetric in size and shape. Brain: No intracranial bleeds or masses. There is cerebral volume loss for age, with resultant ventricular and sulcal prominence. There are periventricular and deep white matter chronic small vessel ischemic changes. There is a remote infarction seen involving the anterior right temporal lobe and the anterior right frontal lobe. There is intracranial internal carotid artery atherosclerosis. Skull and face: Calvarium and visualized facial bones appear intact, without suspicious lesions. Sinuses: Visualized sinuses and mastoids are clear. IMPRESSION: No acute intracranial hemorrhage is seen. Remote right cerebral hemisphere infarction, as previously demonstrated. Dictated by: Keith Patton M.D. on 12/09/2019 at 15:37 Approved by: Keith Patton M.D. on 12/09/2019 at 15:39
[2019-12-09 16:05] LABS: Add Manual Diff / Slide Review NO; Basophils Absolute Auto 0 /uL (0-100); Basophils Percent Auto 1.1 % (0-2); Eosinophils Absolute Auto 200 /uL (0-450); Eosinophils Percent Auto 4.1 % (2-4); Hematocrit 39.2 % (36-46); Hemoglobin 13.6 g/dL (12.0-16.0); Lymphocytes Absolute Auto 1100 /uL (1100-4500); Lymphocytes Percent Auto 24.5 % (25-40); Mean Corpuscular HGB Conc 34.7 % (30-36); Mean Corpuscular Hemoglobin 28.9 PG (26-34); Mean Corpuscular Volume 83.3 fL (80-100); Monocytes Absolute Auto 400 /uL (0-900); Monocytes Percent Auto 9.6 % (3-14); Neutrophils Absolute Auto 2600 /uL (1500-7000); Neutrophils Percent Auto 60.7 % (50-75); Platelet Count 156 X10^3/uL (150-400); Red Blood Cell Count 4.71 X10^6/uL (4.0-5.2); Red Cell Distribution Width 14.7 % (11.6-14.8); White Blood Cell Count 4.3 X10^3/uL (4.5-11.0)
[2019-12-09 16:12] LABS: INR 1.1 (0.9-1.3); Prothrombin Time 12.3 SECONDS (10.1-12.7)
[2019-12-09 16:17] LABS: Alanine Aminotransferase 53 IU/L (<35); Albumin Globulin Ratio 1.1 (1.0-2.8); Alkaline Phosphatase 143 U/L (38-126); Aspartate Aminotransferase 51 IU/L (14-36); BUN Creatinine Ratio 13.3 (6-22); Bilirubin Total 0.9 mg/dL (0.2-1.3); Blood Urea Nitrogen 8 mg/dL (7-17); Calcium 9.2 mg/dL (8.4-10.2); Carbon Dioxide 28 mmol/L (22-32); Chloride 93 mmol/L (98-107); Creatine Kinase 29 U/L (30-135); Estimated Glomerular Filt Rate > 60.0 mL/min (>60); Globulin 3.6 g/dL (1.7-4.1); Glucose 159 mg/dL (80-110); HEMOLYSIS 15 (0-50); Potassium 4.2 mmol/L (3.4-5.1); Sodium 129 mmol/L (137-145); Total Protein 7.6 g/dL (6.3-8.2)
[2019-12-09] MEDS: SODIUM CHLORIDE 0.9% 1,000 ML 1000 ML IV (16:17)
[2019-12-09 16:29] LABS: Troponin I < 0.012 ng/mL (0.01-0.034)
[2019-12-09 16:30] VITALS: BP 150/52; PULSE 68; RESP 16; O2SAT 99
[2019-12-09 16:34] LABS: Appearance Urine UA SL CLOUDY; Bilirubin Urine UA NEGATIVE (NEGATIVE); Color Urine UA YELLOW; Glucose Urine UA NEGATIVE (Negative); Ketones Urine UA NEGATIVE (NEGATIVE); Leukocyte Esterase Urine UA 3+ (NEGATIVE); Nitrite Urine UA NEGATIVE (Negative); Occult Blood Urine UA TRACE-LYSED (Negative); Protein Urine UA NEGATIVE (Negative); Specific Gravity Urine UA <=1.005 (1.000-1.035); Urobilinogen Urine UA 0.2 E.U./dL (0.2)
[2019-12-09 16:42] LABS: RBC Urine 0-1/HPF (0-5/HPF); Squamous Epithelial Cell Urine 1-5 /HPF (0-5/HPF); Transitional Epi Cells Urine 5-10/HPF (0-5/HPF); WBC Urine 30-100/HPF (0-5/HPF)
[2019-12-09 16:43] LABS: Bacteria Urine Moderate (10-30); Culture Indicated Urine Specimen Cultured
[2019-12-09 17:30] VITALS: BP 126/51; PULSE 64; RESP 17; O2SAT 99
[2019-12-09 17:39] LABS: Lactate (Lactic Acid) 1.4 mmol/L (0.7-2.1)
[2019-12-09 18:27] LABS: Procalcitonin < 0.05 ng/mL (<0.5)
[2019-12-09 18:48] VITALS: BP 128/67; PULSE 66; RESP 18; O2SAT 99
--- NOTE | 2019-12-09 18:48 | PC.NURSE ---
Patient had soaked through depends. Bed linens and lux care performed by this EDRN and Jean Marie SINGH. Patient ambulated in hallways with walker with standby assist. Denies any dizziness.
[2019-12-09] MEDS: NITROFURANTOIN ER 100 MG CAPSULE PO (19:20)
--- NOTE | 2019-12-09 19:33 | PC.NURSE ---
Patient given sandwich and juice at this time. I called report to Mayra ZAIDI at [facility]. They will come and get the patient in the next 30 minutes.
[2019-12-09 20:00] VITALS: BP 134/58; PULSE 67; RESP 16; O2SAT 97
--- NOTE | 2019-12-09 20:51 | ED_ITS ---
HPI - Fall <Nati Messer ACADEMIC COORDINATOR-BC - Last Filed: 12/09/19 21:00> General Chief Complaint: Fall Stated Complaint: GLF Time Seen by Provider: 12/09/19 15:30 Source: EMS Mode of arrival: EMS Limitations: no limitations History of Present Illness HPI Narrative: The patient is a 79-year-old female pleasantly confused who presents to the emergency department by EMS for an episode of a fall earlier today a at her memory care unit. She self reported the fall stated that she had left hip pain. Denies any neck pain hitting her head, passing out etcetera. She denies any other pain from the fall today. She denies any chest pain, shortness of breath, states she is not sure why she fell. She does have history of urinary tract infections. Denies any fever, cough, congestion, nausea vomiting diarrhea or abdominal pain. The patient has been ambulatory since the fall Related Data Home Medications Medication Instructions Recorded Confirmed acidophilus-sporogenes 2 tab PO DAILY 08/13/19 12/09/19 [Acidophilus Ex Str (L. sporog)] melatonin 3 mg PO BEDTIME 08/13/19 12/09/19 acetaminophen 325 - 650 mg PO Q4H PRN 11/24/19 12/09/19 amlodipine 5 mg PO DAILY 11/24/19 12/09/19 aspirin 81 mg PO DAILY 11/24/19 12/09/19 atorvastatin 40 mg PO DAILY 11/24/19 12/09/19 citalopram 10 mg PO DAILY 11/24/19 12/09/19 fluticasone propionate 1 spray INTRANASAL DAILY 11/24/19 12/09/19 gabapentin 300 mg PO BEDTIME 11/24/19 12/09/19 hydrocortisone 1 applic TOPICAL BID 11/24/19 12/09/19 insulin aspart U-100 [Novolog See Rx Instructions .ROUTE .COMPLEX 11/24/19 12/09/19 U-100 Insulin aspart] insulin detemir U-100 [Levemir 3 unit SUBCUT QPM 11/24/19 12/09/19 U-100 Insulin] insulin detemir U-100 [Levemir 25 unit SUBCUT QAM 11/24/19 12/09/19 U-100 Insulin] levothyroxine 88 mcg PO DAILY 11/24/19 12/09/19 loratadine 10 mg PO DAILY PRN 11/24/19 12/09/19 magnesium oxide 400 mg PO DAILY 11/24/19 12/09/19 multivitamin with minerals 1 tab PO DAILY 11/24/19 12/09/19 pantoprazole 40 mg PO DAILY 11/24/19 12/09/19 potassium chloride 10 meq PO BID 11/24/19 12/09/19 sennosides [senna] 8.6 mg PO BEDTIME 11/24/19 12/09/19 rivastigmine tartrate 1.5 mg PO BID 12/09/19 12/09/19 Previous Rx's Medication Instructions Recorded nitrofurantoin monohyd/m-cryst 100 mg PO Q12H 7 Days #14 cap 12/09/19 Allergies Allergy/AdvReac Type Severity Reaction Status Date / Time rosiglitazone [ROSIGLITAZONE] Allergy Mild ECZEMA Verified 12/09/19 19:34 cephalexin [CEPHALEXIN] Allergy Unknown Verified 12/09/19 19:34 cyclobenzaprine Allergy Unknown Verified 12/09/19 19:34 [CYCLOBENZAPRINE] lisinopril [LISINOPRIL] Allergy Unknown Verified 12/09/19 19:34 meloxicam [MELOXICAM] Allergy Unknown Verified 12/09/19 19:34 sitagliptin [From JANUVIA] Allergy Unknown Verified 12/09/19 19:34 Review of Systems <ANETTE Patel - Last Filed: 12/09/19 21:00> Review of Systems Narrative: GENERAL: See HPI HEENT: Denies sinus pain, ear pain, sore throat, difficulty swallowing, dizziness. RESPIRATORY: Denies dyspnea, cough, wheezing, hemoptysis, sputum. CARDIOVASCULAR: Denies chest pain, palpitations, orthopnea, edema, GASTROINTESTINAL: Denies nausea, vomiting, abdominal pain, diarrhea, constipati on, melena. : Denies dysuria, frequency, incontinence, hematuria, urinary retention. MUSCULOSKELETAL: See HPI SKIN: Denies rash, skin lesions, or other NEUROLOGIC: See HPI PSYCHIATRIC: No concerning psychosocial issues. 12 point review of systems is negative except for those stated above Patient History <ANETTE Patel - Last Filed: 12/09/19 21:00> Medical History CVA (cerebral vascular accident) (Acute) Elevated CPK (Acute) Encephalitis, viral (Acute) Hyponatremia (Acute) Urinary retention (Acute) Social History Smoking Status: Unknown if ever smoked Smoking Status: Unknown if ever smoked alcohol intake frequency: other Substance Use Type: does not use Exam <ANETTE Patel - Last Filed: 12/09/19 21:00> Narrative Exam Narrative: GENERAL: This is a well-nourished, well-developed patient, in no acute distress HEAD: Atraumatic. Normocephalic. No temporal or scalp tenderness. EYES: Pupils equal round and reactive. Extraocular motions intact. No scleral icterus. No injection or drainage. ENT: Nose without bleeding, purulent drainage or septal hematoma. Throat without erythema, tonsillar hypertrophy or exudate. Uvula midline. Airway patent. NECK: Trachea midline. No JVD or lymphadenopathy. Supple, nontender, no meningeal signs. CARDIOVASCULAR: Regular rate and rhythm RESPIRATORY: Clear to auscultation. Breath sounds equal bilaterally. No wheezes, rales, or rhonchi. No cough. No increased respiratory effort. No accessory muscle use. GASTROINTESTINAL: Abdomen soft, non-tender, nondistended. No hepato- splenomegaly, or palpable masses. No guarding. EXTREMITIES: No clubbing, cyanosis, or edema. No joint tenderness, effusion, or edema noted. BACK: Thoracic spine and lumbar spine are without deformity or crepitance. No flank tenderness. No pain to C-spine palpation. Pain to T spine palpation. NEURO: AOx3. Interactive, appropriate SKIN: No rash or erythema on visible Initial Vital Signs Initial Vital Signs: Vital Signs Temperature 98.6 F 12/09/19 15:33 Pulse Rate 66 12/09/19 15:33 Respiratory Rate 12 12/09/19 15:33 Blood Pressure 151/65 H 12/09/19 15:33 Pulse Oximetry 98 12/09/19 15:33 <Nati Delgadillo DO - Last Filed: 12/18/19 01:15> Initial Vital Signs Initial Vital Signs: Vital Signs Temperature 98.6 F 12/09/19 15:33 Pulse Rate 66 12/09/19 15:33 Respiratory Rate 12 12/09/19 15:33 Blood Pressure 151/65 H 12/09/19 15:33 Pulse Oximetry 98 12/09/19 15:33 Course <SHASHA Patel-BC - Last Filed: 12/09/19 21:00> Orders Ordered: Discontinued Medications Sodium Chloride (Normal Saline 0.9%) 1,000 mls @ 1,000 mls/hr IV BOLUS ONE Stop: 12/09/19 16:50 Last Infusion: 12/09/19 19:34 Dose: 0 mls/hr Documented by: Admin: 12/09/19 16:17 Dose: 1,000 mls/hr Documented by: BHAVIK Nitrofurantoin Macrocrystals (Macrobid 100 Mg Capsule) 100 mg PO NOW ONE Stop: 12/09/19 18:53 Last Admin: 12/09/19 19:20 Dose: 100 mg Documented by: BHAVIK Vital Signs Vital signs: Vital Signs - 8 hr 12/09/19 15:33 12/09/19 15:34 12/09/19 18:48 Temperature 98.6 F 98.6 F Pulse Rate 66 66 66 Respiratory Rate 12 16 18 Blood Pressure 151/65 H Blood Pressure [Left Arm] 151/65 H 128/67 Pulse Oximetry 98 98 99 <Nati Delgadillo DO - Last Filed: 12/18/19 01:15> Orders Ordered: Discontinued Medications Sodium Chloride (Normal Saline 0.9%) 1,000 mls @ 1,000 mls/hr IV BOLUS ONE Stop: 12/09/19 16:50 Last Infusion: 12/09/19 19:34 Dose: 0 mls/hr Documented by: Admin: 12/09/19 16:17 Dose: 1,000 mls/hr Documented by: BHAVIK Nitrofurantoin Macrocrystals (Macrobid 100 Mg Capsule) 100 mg PO NOW ONE Stop: 12/09/19 18:53 Last Admin: 12/09/19 19:20 Dose: 100 mg Documented by: BHAVIK Vital Signs Vital signs: Vital Signs - 8 hr 12/09/19 15:33 12/09/19 15:34 12/09/19 18:48 Temperature 98.6 F 98.6 F Pulse Rate 66 66 66 Respiratory Rate 12 16 18 Blood Pressure 151/65 H Blood Pressure [Left Arm] 151/65 H 128/67 Pulse Oximetry 98 98 99 MDM - Fall <Nati Messer, ACADEMIC COORDINATOR-BC - Last Filed: 12/09/19 21:00> Lab Data Result diagrams: 12/09/19 16:00 12/09/19 16:00 Labs: Lab Results 12/09/19 12/09/19 12/09/19 Range/Units 16:00 16:00 16:00 WBC 4.3 L (4.5-11.0) X10^3/uL RBC 4.71 (4.0-5.2) X10^6/uL Hgb 13.6 (12.0-16.0) g/dL Hct 39.2 (36-46) % MCV 83.3 (80-100) fL MCH 28.9 (26-34) PG MCHC 34.7 (30-36) % RDW 14.7 (11.6-14.8) % Plt Count 156 (150-400) X10^3/uL Neut % (Auto) 60.7 (50-75) % Lymph % (Auto) 24.5 L (25-40) % [place] % (Auto) 9.6 (3-14) % Eos % (Auto) 4.1 H (2-4) % Baso % (Auto) 1.1 (0-2) % Neut # (Auto) 2600 (7361-8311) /uL Lymph # (Auto) 1100 (8692-7051) /uL [place] # (Auto) 400 (0-900) /uL Eos # (Auto) 200 (0-450) /uL Baso # (Auto) 0 (0-100) /uL PT 12.3 (10.1-12.7) SECONDS INR 1.1 (0.9-1.3) Sodium 129 L (137-145) mmol/L Potassium 4.2 (3.4-5.1) mmol/L Chloride 93 L (98-107) mmol/L Carbon Dioxide 28 (22-32) mmol/L BUN 8 (7-17) mg/dL Creatinine 0.60 (0.52-1.04) mg/dL Estimated GFR > 60.0 (>60) mL/min BUN/Creatinine Ratio 13.3 (6-22) Glucose 159 H (80-110) mg/dL Lactate (0.7-2.1) mmol/L Calcium 9.2 (8.4-10.2) mg/dL Total Bilirubin 0.9 (0.2-1.3) mg/dL AST 51 H (14-36) IU/L ALT 53 H (<35) IU/L Alkaline Phosphatase 143 H (38-126) U/L Total Creatine Kinase 29 L (30-135) U/L CK-MB (CK-2) TNP CK-MB (CK-2) Rel Index TNP Troponin I < 0.012 (0.01-0.034) ng/mL Total Protein 7.6 (6.3-8.2) g/dL Albumin 4.0 (3.5-5.0) g/dL Globulin 3.6 (1.7-4.1) g/dL Albumin/Globulin Ratio 1.1 (1.0-2.8) Procalcitonin (<0.5) ng/mL Urine Color Urine Appearance Urine pH (4.5-8.0) Ur Specific [place] (1.000-1.035) Urine Protein (Negative) Urine Glucose (UA) (Negative) g/dL Urine Ketones (NEGATIVE) Urine Occult Blood (Negative) Urine Nitrate (Negative) Urine Bilirubin (NEGATIVE) Urine Urobilinogen (0.2) E.U./dL Ur Leukocyte Esterase (NEGATIVE) Urine RBC (0-5/HPF) Urine WBC (0-5/HPF) Ur Squamous Epith Cells (0-5/HPF) Ur Transition Epith Cell (0-5/HPF) Urine Bacteria (None) Ur Culture Indicated? 12/09/19 12/09/19 12/09/19 Range/Units 16:10 17:18 17:18 WBC (4.5-11.0) X10^3/uL RBC (4.0-5.2) X10^6/uL Hgb (12.0-16.0) g/dL Hct (36-46) % MCV (80-100) fL MCH (26-34) PG MCHC (30-36) % RDW (11.6-14.8) % Plt Count (150-400) X10^3/uL Neut % (Auto) (50-75) % Lymph % (Auto) (25-40) % [place] % (Auto) (3-14) % Eos % (Auto) (2-4) % Baso % (Auto) (0-2) % Neut # (Auto) (5986-8632) /uL Lymph # (Auto) (5355-0913) /uL [place] # (Auto) (0-900) /uL Eos # (Auto) (0-450) /uL Baso # (Auto) (0-100) /uL PT (10.1-12.7) SECONDS INR (0.9-1.3) Sodium (137-145) mmol/L Potassium (3.4-5.1) mmol/L Chloride (98-107) mmol/L Carbon Dioxide (22-32) mmol/L BUN (7-17) mg/dL Creatinine (0.52-1.04) mg/dL Estimated GFR (>60) mL/min BUN/Creatinine Ratio (6-22) Glucose (80-110) mg/dL Lactate 1.4 (0.7-2.1) mmol/L Calcium (8.4-10.2) mg/dL Total Bilirubin (0.2-1.3) mg/dL AST (14-36) IU/L ALT (<35) IU/L Alkaline Phosphatase (38-126) U/L Total Creatine Kinase (30-135) U/L CK-MB (CK-2) CK-MB (CK-2) Rel Index Troponin I (0.01-0.034) ng/mL Total Protein (6.3-8.2) g/dL Albumin (3.5-5.0) g/dL Globulin (1.7-4.1) g/dL Albumin/Globulin Ratio (1.0-2.8) Procalcitonin < 0.05 (<0.5) ng/mL Urine Color Yellow Urine Appearance Sl cloudy Urine pH 7.0 (4.5-8.0) Ur Specific [place] <=1.005 (1.000-1.035) Urine Protein Negative (Negative) Urine Glucose (UA) Negative (Negative) g/dL Urine Ketones Negative (NEGATIVE) Urine Occult Blood Trace-lysed (Negative) Urine Nitrate Negative (Negative) Urine Bilirubin Negative (NEGATIVE) Urine Urobilinogen 0.2 (0.2) E.U./dL Ur Leukocyte Esterase 3+ H (NEGATIVE) Urine RBC 0-1/hpf (0-5/HPF) Urine WBC 30-100/hpf H (0-5/HPF) Ur Squamous Epith Cells 1-5 /hpf (0-5/HPF) Ur Transition Epith Cell 5-10/hpf H (0-5/HPF) Urine Bacteria Moderate (10-30) H (None) Ur Culture Indicated? Specimen cultured Imaging Data t spine xray : Radiologist's Impression: Roberta Palmer K 79 F [address] [address] XRay Report Signed Patient: Roberta Palmer KMR#: [id number] : 1940cct:[id number] Age/Sex: 79 / FDate of Service: 12/09/19 Loc: ED Accession Number: [id number] Procedure: XR thoracic spine 3V Ordering Provider: Nati Messer PROCEDURE: XR THORACIC SPINE 3V INDICATIONS: pain sp fall TECHNIQUE: 3 views of the thoracic spine were acquired. COMPARISON: [facility], , CHEST 2 VIEW, 01/24/2013, 14:25. FINDINGS: Bones: No fractures or dislocations. No suspicious bony lesions. Diffuse discogenic changes. Soft tissues: No paravertebral stripe thickening. IMPRESSION: No acute fracture. Diffuse spondylosis and facet arthropathy Dictated by: Channing Tao M.D. on 12/09/2019 at 16:57 Approved by: Channing Tao M.D. on 12/09/2019 at 16:59 hip xray : Radiologist's Impression: [address] [address] XRay Report Signed Patient: Roberta Palmer KMR#: [id number] : 1940cct:[id number] Age/Sex: 79 / FDate of Service: 12/09/19 Loc: ED Accession Number: [id number] Procedure: XR hip w pel if done LT 2V Ordering Provider: Nati Messer PROCEDURE: XR HIP W PEL IF DONE LT 2V INDICATIONS: pain sp fall TECHNIQUE: AP pelvis with lateral view(s) of the left hip(s). COMPARISON: None. FINDINGS: Bones: No fractures or dislocations. Pelvic ring appears intact. No suspicious bony lesions. Left hip arthroplasty expected postoperative alignment. Hardware appears intact. Bilateral moderate hip joint degeneration. Lower lumbar spondylosis Soft tissues: The visualized bowel gas pattern is normal. No suspicious soft tissue calcifications. IMPRESSION: No fracture identified Degenerative and postsurgical changes as above Dictated by: Channing Tao M.D. on 12/09/2019 at 16:54 Approved by: Channing Tao M.D. on 12/09/2019 at 16:57 CT scan - head: Radiologist's Impression: [address] [place] [address] CT Scan Report Signed Patient: Roberta Palmer KMR#: [id number] : 1Acct:[id number] Age/Sex: 79 / FDate of Service: 12/09/19 Loc: ED Accession Number: [id number] Procedure: CT head/brain wo con Ordering Provider: Nati Messer [facility]- PROCEDURE: CT HEAD/BRAIN WO CON INDICATIONS: glf, hit head TECHNIQUE: Noncontrast 4.5 mm thick angled axial sections acquired from the foramen magnum to the vertex, with coronal and sagittal reformats. For radiation dose reduction, the following was used: automated exposure control, adjustment of mA and/or kV according to patient size. COMPARISON: [facility], MR, BRAIN W&WO CONTRAST, 08/14/2017, 15:35. [facility], MR, BRAIN WITHOUT CONTRAST, 08/05/2017, 14:33. [facility], CT, HEAD WITHOUT CONTRAST, 08/04/2017, 18:36. FINDINGS: Image quality: Excellent. CSF spaces: Basal cisterns are patent. No extra-axial fluid collections. The ventricles are symmetric in size and shape. Brain: No intracranial bleeds or masses. There is cerebral volume loss for age, with resultant ventricular and sulcal prominence. There are periventricular and deep white matter chronic small vessel ischemic changes. There is a remote infarction seen involving the anterior right temporal lobe and the anterior right frontal lobe. There is intracranial internal carotid artery atherosclerosis. Skull and face: Calvarium and visualized facial bones appear intact, without s uspicious lesions. Sinuses: Visualized sinuses and mastoids are clear. IMPRESSION: No acute intracranial hemorrhage is seen. Remote right cerebral hemisphere infarction, as previously demonstrated. Dictated by: Keith Patton M.D. on 12/09/2019 at 15:37 Approved by: Keith Patton M.D. on 12/09/2019 at 15:39 [facility] Narrative Medical decision making narrative: The patient is a 79-year-old female with history of memory issues who lives on a memory care unit who presents with a chief complaint of a fall earlier today and subsequent hip pain. Her sodium is slightly low, 129 however she was 130 during her last visit a few weeks ago. This appears to be stable for the patient.. Patient is nontoxic appearing, denies any chest pain, his troponin negative, has overall negative imaging. She is noted to have a recurrent UTI, having recently finished a course of Augmentin. The patient may be colonized with E coli at this point time, however given her okay renal function I elected to treat her with Macrobid at this point time. She is able to tolerate p.o. dose in the emergency department, has no leukocytosis, no lactate or elevated procalcitonin indicating a lack of systemic symptoms. She also denies any symptoms including fever vomiting etcetera. She is able to ambulate around the emergency department with no acute distress, is steady on her feet request to go back pain. I discussed at length with patient and her friend that she needs to follow up with primary care provider in the next few days for re-evaluation and urine cultures pending at this time. Discussed coming back to the ER for acute concerns. Patient and friend of no questions or concerns upon discharge and state understanding of return precautions as well as follow-up care. <Nati Delgadillo, DO - Last Filed: 12/18/19 01:15> Lab Data Labs: Lab Results 12/09/19 12/09/19 12/09/19 Range/Units 16:00 16:00 16:00 WBC 4.3 L (4.5-11.0) X10^3/uL RBC 4.71 (4.0-5.2) X10^6/uL Hgb 13.6 (12.0-16.0) g/dL Hct 39.2 (36-46) % MCV 83.3 (80-100) fL MCH 28.9 (26-34) PG MCHC 34.7 (30-36) % RDW 14.7 (11.6-14.8) % Plt Count 156 (150-400) X10^3/uL Neut % (Auto) 60.7 (50-75) % Lymph % (Auto) 24.5 L (25-40) % [place] % (Auto) 9.6 (3-14) % Eos % (Auto) 4.1 H (2-4) % Baso % (Auto) 1.1 (0-2) % Neut # (Auto) 2600 (5901-5358) /uL Lymph # (Auto) 1100 (6913-3724) /uL [place] # (Auto) 400 (0-900) /uL Eos # (Auto) 200 (0-450) /uL Baso # (Auto) 0 (0-100) /uL PT 12.3 (10.1-12.7) SECONDS INR 1.1 (0.9-1.3) Sodium 129 L (137-145) mmol/L Potassium 4.2 (3.4-5.1) mmol/L Chloride 93 L (98-107) mmol/L Carbon Dioxide 28 (22-32) mmol/L BUN 8 (7-17) mg/dL Creatinine 0.60 (0.52-1.04) mg/dL Estimated GFR > 60.0 (>60) mL/min BUN/Creatinine Ratio 13.3 (6-22) Glucose 159 H (80-110) mg/dL Lactate (0.7-2.1) mmol/L Calcium 9.2 (8.4-10.2) mg/dL Total Bilirubin 0.9 (0.2-1.3) mg/dL AST 51 H (14-36) IU/L ALT 53 H (<35) IU/L Alkaline Phosphatase 143 H (38-126) U/L Total Creatine Kinase 29 L (30-135) U/L CK-MB (CK-2) TNP CK-MB (CK-2) Rel Index TNP Troponin I < 0.012 (0.01-0.034) ng/mL Total Protein 7.6 (6.3-8.2) g/dL Albumin 4.0 (3.5-5.0) g/dL Globulin 3.6 (1.7-4.1) g/dL Albumin/Globulin Ratio 1.1 (1.0-2.8) Procalcitonin (<0.5) ng/mL Urine Color Urine Appearance Urine pH (4.5-8.0) Ur Specific [place] (1.000-1.035) Urine Protein (Negative) Urine Glucose (UA) (Negative) g/dL Urine Ketones (NEGATIVE) Urine Occult Blood (Negative) Urine Nitrate (Negative) Urine Bilirubin (NEGATIVE) Urine Urobilinogen (0.2) E.U./dL Ur Leukocyte Esterase (NEGATIVE) Urine RBC (0-5/HPF) Urine WBC (0-5/HPF) Ur Squamous Epith Cells (0-5/HPF) Ur Transition Epith Cell (0-5/HPF) Urine Bacteria (None) Ur Culture Indicated? 12/09/19 12/09/19 12/09/19 Range/Units 16:10 17:18 17:18 WBC (4.5-11.0) X10^3/uL RBC (4.0-5.2) X10^6/uL Hgb (12.0-16.0) g/dL Hct (36-46) % MCV (80-100) fL MCH (26-34) PG MCHC (30-36) % RDW (11.6-14.8) % Plt Count (150-400) X10^3/uL Neut % (Auto) (50-75) % Lymph % (Auto) (25-40) % [place] % (Auto) (3-14) % Eos % (Auto) (2-4) % Baso % (Auto) (0-2) % Neut # (Auto) (2801-1718) /uL Lymph # (Auto) (3487-2114) /uL [place] # (Auto) (0-900) /uL Eos # (Auto) (0-450) /uL Baso # (Auto) (0-100) /uL PT (10.1-12.7) SECONDS INR (0.9-1.3) Sodium (137-145) mmol/L Potassium (3.4-5.1) mmol/L Chloride (98-107) mmol/L Carbon Dioxide (22-32) mmol/L BUN (7-17) mg/dL Creatinine (0.52-1.04) mg/dL Estimated GFR (>60) mL/min BUN/Creatinine Ratio (6-22) Glucose (80-110) mg/dL Lactate 1.4 (0.7-2.1) mmol/L Calcium (8.4-10.2) mg/dL Total Bilirubin (0.2-1.3) mg/dL AST (14-36) IU/L ALT (<35) IU/L Alkaline Phosphatase (38-126) U/L Total Creatine Kinase (30-135) U/L CK-MB (CK-2) CK-MB (CK-2) Rel Index Troponin I (0.01-0.034) ng/mL Total Protein (6.3-8.2) g/dL Albumin (3.5-5.0) g/dL Globulin (1.7-4.1) g/dL Albumin/Globulin Ratio (1.0-2.8) Procalcitonin < 0.05 (<0.5) ng/mL Urine Color Yellow Urine Appearance Sl cloudy Urine pH 7.0 (4.5-8.0) Ur Specific [place] <=1.005 (1.000-1.035) Urine Protein Negative (Negative) Urine Glucose (UA) Negative (Negative) g/dL Urine Ketones Negative (NEGATIVE) Urine Occult Blood Trace-lysed (Negative) Urine Nitrate Negative (Negative) Urine Bilirubin Negative (NEGATIVE) Urine Urobilinogen 0.2 (0.2) E.U./dL Ur Leukocyte Esterase 3+ H (NEGATIVE) Urine RBC 0-1/hpf (0-5/HPF) Urine WBC 30-100/hpf H (0-5/HPF) Ur Squamous Epith Cells 1-5 /hpf (0-5/HPF) Ur Transition Epith Cell 5-10/hpf H (0-5/HPF) Urine Bacteria Moderate (10-30) H (None) Ur Culture Indicated? Specimen cultured Discharge Plan Departure Patient Disposition: Home Clinical Impression: Multiple falls, Acute UTI Acute hip pain Qualifiers: Laterality: left Qualified Code(s): M25.552 - Pain in left hip Discharge Date/Time: 12/09/19 20:58 Instructions: DI for Urinary Tract Infection (UTI), How to Prevent Falls, DI for Hip Pain Activity Restrictions/Additional Instructions: Today we did pictures of your head, hip and back. They came back with no acute findings. Please follow-up with primary care provider in the next few days. Your urine is concerning for infection. We have started you on another antibiotic. Please come back to the emergency department for any acute concerns. Prescriptions: New nitrofurantoin monohyd/m-cryst 100 mg capsule 100 mg PO Q12H 7 Days Qty: 14 RF: 0 No Action rivastigmine tartrate 1.5 mg capsule 1.5 mg PO BID RF: [address] (L. sporog) 35 million- 25 million cell Tablet 2 tab PO DAILY RF: 0 melatonin 3 mg Tablet 3 mg PO BEDTIME RF: 0 atorvastatin 40 mg Tablet 40 mg PO DAILY RF: 0 sennosides [senna] 8.6 mg Tablet 8.6 mg PO BEDTIME RF: 0 acetaminophen 325 mg Tablet 325 - 650 mg PO Q4H PRN (Reason: pain or headache) RF: 0 citalopram 10 mg Tablet 10 mg PO DAILY RF: 0 potassium chloride 10 mEq Tablet Extended Release 10 meq PO BID RF: 0 amlodipine 5 mg Tablet 5 mg PO DAILY RF: 0 aspirin 81 mg Tablet,Delayed Release (Dr/Ec) 81 mg PO DAILY RF: 0 levothyroxine 88 mcg Tablet 88 mcg PO DAILY RF: 0 Novolog U-100 Insulin aspart 100 unit/mL Solution See Rx Instructions .ROUTE .COMPLEX RF: 0 pantoprazole 40 mg Tablet,Delayed Release (Dr/Ec) 40 mg PO DAILY RF: 0 gabapentin 300 mg Capsule 300 mg PO BEDTIME RF: 0 hydrocortisone 2.5 % Cream 1 applic TOPICAL BID RF: 0 multivitamin with minerals Tablet 1 tab PO DAILY RF: 0 fluticasone propionate 50 mcg/actuation [place],Suspension 1 spray INTRANASAL DAILY RF: 0 loratadine 10 mg Tablet 10 mg PO DAILY PRN (Reason: Allergy Symptoms) RF: 0 Levemir U-100 Insulin 100 unit/mL Solution 25 unit SUBCUT QAM RF: 0 Levemir U-100 Insulin 100 unit/mL Solution 3 unit SUBCUT QPM RF: 0 magnesium oxide 400 mg magnesium Tablet 400 mg PO DAILY RF: 0 Referrals: Kassy Monique MD [Primary Care Provider] -
== END 2019-12-09 20:58 | disposition home or self-care (01) ==
PROVIDERS: Emergency Provider Nurse Practitioner Family; Family Provider Nurse Practitioner Family; PCP Internal Medicine
DX: R29.6 Repeated falls (principal); M25.552 Pain in left hip; N39.0 Urinary tract infection, site not specified; S09.90XA Unspecified injury of head, initial encounter; S29.9XXA Unspecified injury of thorax, initial encounter; W19.XXXA Unspecified fall, initial encounter; R41.0 Disorientation, unspecified; E87.1 Hypo-osmolality and hyponatremia
CPT/HCPCS: 36415; 70450; 72072; 73502; 80053; 81001; 82550; 83605; 84145; 84484; 85025; 85610; 87040; 87077; 87086; 87186; 93005; 93010; 96360; 96361; 99284; 99285

== ENCOUNTER → 2019-12-27 08:23 | Outpatient (ROUT) | payer MEDICARE, SELFPAY ==
[2019-12-27 08:26] LABS: Bacteria Urine None Seen
[2019-12-27 08:30] LABS: Appearance Urine UA SL CLOUDY; Bilirubin Urine UA NEGATIVE (NEGATIVE); Color Urine UA YELLOW; Glucose Urine UA NEGATIVE (Negative); Ketones Urine UA NEGATIVE (NEGATIVE); Leukocyte Esterase Urine UA 3+ (NEGATIVE); Nitrite Urine UA POSITIVE (Negative); Occult Blood Urine UA 1+ (Negative); Protein Urine UA NEGATIVE (Negative); Specific Gravity Urine UA 1.015 (1.000-1.035); Urobilinogen Urine UA 0.2 E.U./dL (0.2)
[2019-12-27 08:47] LABS: Culture Indicated Urine Cult Not Indicated; RBC Urine 1-5/HPF (0-5/HPF); Squamous Epithelial Cell Urine 5-10 /HPF (0-5/HPF); WBC Urine 30-100/HPF (0-5/HPF); White Blood Cell Casts Urine 1-5/LPF
== END ==
PROVIDERS: Family Provider Nurse Practitioner Family; PCP Internal Medicine; Visit Provider Registered Nurse
DX: R35.0 Frequency of micturition (principal)
CPT/HCPCS: 81001; 87077; 87086; 87186

== ENCOUNTER → 2020-01-02 07:35 | Outpatient (ROUT) | payer MEDICARE, SELFPAY ==
[2020-01-02 08:16] LABS: Hemoglobin A1C% w Est Avg Glu 7.5 % (4.0-6.0)
== END ==
PROVIDERS: Family Provider Nurse Practitioner Family; PCP Internal Medicine; Visit Provider Nurse Practitioner Family
DX: E11.9 Type 2 diabetes mellitus without complications (principal)
CPT/HCPCS: 36415; 83036

== ENCOUNTER → 2020-01-09 07:41 | Outpatient (ROUT) | payer MEDICARE, SELFPAY ==
[2020-01-09 08:14] LABS: Add Manual Diff / Slide Review NO; Basophils Absolute Auto 0 /uL (0-100); Basophils Percent Auto 0.5 % (0-2); Eosinophils Absolute Auto 200 /uL (0-450); Hematocrit 39.3 % (36-46); Hemoglobin 13.4 g/dL (12.0-16.0); Lymphocytes Absolute Auto 900 /uL (1100-4500); Lymphocytes Percent Auto 27.9 % (25-40); Mean Corpuscular HGB Conc 34.2 % (30-36); Mean Corpuscular Hemoglobin 28.7 PG (26-34); Mean Corpuscular Volume 83.8 fL (80-100); Monocytes Absolute Auto 400 /uL (0-900); Monocytes Percent Auto 11.5 % (3-14); Neutrophils Absolute Auto 1700 /uL (1500-7000); Neutrophils Percent Auto 55.1 % (50-75); Platelet Count 134 X10^3/uL (150-400); Red Blood Cell Count 4.69 X10^6/uL (4.0-5.2); Red Cell Distribution Width 14.3 % (11.6-14.8); White Blood Cell Count 3.2 X10^3/uL (4.5-11.0)
[2020-01-09 08:24] LABS: Alanine Aminotransferase 47 IU/L (<35); Albumin 3.6 g/dL (3.5-5.0); Alkaline Phosphatase 128 U/L (38-126); Aspartate Aminotransferase 46 IU/L (14-36); Blood Urea Nitrogen 6 mg/dL (7-17); Calcium 9.1 mg/dL (8.4-10.2); Carbon Dioxide 27 mmol/L (22-32); Chloride 100 mmol/L (98-107); Estimated Glomerular Filt Rate > 60.0 mL/min (>60); Globulin 3.5 g/dL (1.7-4.1); Glucose 148 mg/dL (80-110); HEMOLYSIS < 15 (0-50); Potassium 4.3 mmol/L (3.4-5.1); Sodium 137 mmol/L (137-145); Total Protein 7.1 g/dL (6.3-8.2)
== END ==
PROVIDERS: Family Provider Nurse Practitioner Family; PCP Internal Medicine; Visit Provider Nurse Practitioner Family
DX: R52 Pain, unspecified (principal)
CPT/HCPCS: 36415; 80053; 85025

== ENCOUNTER → 2020-04-14 07:46 | Outpatient (ROUT) | payer MEDICARE, SELFPAY ==
[2020-04-14 08:16] LABS: Add Manual Diff / Slide Review NO; Basophils Absolute Auto 0 /uL (0-100); Basophils Percent Auto 0.7 % (0-2); Eosinophils Absolute Auto 400 /uL (0-450); Eosinophils Percent Auto 9.8 % (2-4); Hematocrit 42.3 % (36-46); Hemoglobin 14.5 g/dL (12.0-16.0); Lymphocytes Absolute Auto 1500 /uL (1100-4500); Lymphocytes Percent Auto 38.1 % (25-40); Mean Corpuscular HGB Conc 34.2 % (30-36); Mean Corpuscular Hemoglobin 28.9 PG (26-34); Mean Corpuscular Volume 84.4 fL (80-100); Monocytes Absolute Auto 300 /uL (0-900); Monocytes Percent Auto 8.8 % (3-14); Neutrophils Absolute Auto 1600 /uL (1500-7000); Neutrophils Percent Auto 42.6 % (50-75); Platelet Count 147 X10^3/uL (150-400); Red Blood Cell Count 5.01 X10^6/uL (4.0-5.2); Red Cell Distribution Width 14.3 % (11.6-14.8); White Blood Cell Count 3.9 X10^3/uL (4.5-11.0)
[2020-04-14 09:12] LABS: Alanine Aminotransferase 49 IU/L (<35); Albumin 3.9 g/dL (3.5-5.0); Albumin Globulin Ratio 1.1 (1.0-2.8); Alkaline Phosphatase 144 U/L (38-126); Aspartate Aminotransferase 51 IU/L (14-36); BUN Creatinine Ratio 10.3 (6-22); Bilirubin Total 0.7 mg/dL (0.2-1.3); Blood Urea Nitrogen 6 mg/dL (7-17); Calcium 9.4 mg/dL (8.4-10.2); Carbon Dioxide 28 mmol/L (22-32); Chloride 99 mmol/L (98-107); Estimated Glomerular Filt Rate > 60.0 mL/min (>60); Globulin 3.6 g/dL (1.7-4.1); Glucose 135 mg/dL (80-110); HEMOLYSIS < 15 (0-50); Magnesium 2.2 mg/dL (1.6-2.3); Potassium 4.3 mmol/L (3.4-5.1); Sodium 138 mmol/L (137-145); Total Protein 7.5 g/dL (6.3-8.2)
[2020-04-14 09:34] LABS: Thyroid Stimulating Hormone 6.17 uIU/mL (0.47-4.68)
[2020-04-14 09:42] LABS: Hemoglobin A1C% w Est Avg Glu 7.7 % (4.0-6.0)
[2020-04-14 09:56] LABS: Vitamin B12 > 1000 pg/mL (239-931)
== END ==
PROVIDERS: Family Provider Nurse Practitioner Family; PCP Internal Medicine; Visit Provider Nurse Practitioner Family
DX: E11.9 Type 2 diabetes mellitus without complications (principal); Z79.899 Other long term (current) drug therapy; E03.9 Hypothyroidism, unspecified; E53.8 Deficiency of other specified B group vitamins; I10 Essential (primary) hypertension
CPT/HCPCS: 36415; 80053; 82607; 83036; 83735; 84443; 85025

== ENCOUNTER → 2020-05-21 09:42 | Outpatient (ROUT) | payer MEDICARE, SELFPAY ==
[2020-05-21 11:00] LABS: Thyroid Stimulating Hormone 6.04 uIU/mL (0.47-4.68)
== END ==
PROVIDERS: Family Provider Nurse Practitioner Family; PCP Internal Medicine; Visit Provider Nurse Practitioner Family
DX: E03.9 Hypothyroidism, unspecified (principal)
CPT/HCPCS: 36415; 84443

== ENCOUNTER → 2020-07-05 09:02 | Outpatient (ROUT) | payer MEDICARE, SELFPAY ==
[2020-07-05 09:28] LABS: Add Manual Diff / Slide Review NO; Basophils Absolute Auto 0 /uL (0-100); Basophils Percent Auto 0.6 % (0-2); Eosinophils Absolute Auto 300 /uL (0-450); Eosinophils Percent Auto 6.6 % (2-4); Hematocrit 41.1 % (36-46); Hemoglobin 13.6 g/dL (12.0-16.0); Lymphocytes Absolute Auto 1300 /uL (1100-4500); Lymphocytes Percent Auto 29.2 % (25-40); Mean Corpuscular Volume 84.7 fL (80-100); Monocytes Absolute Auto 400 /uL (0-900); Monocytes Percent Auto 9.7 % (3-14); Neutrophils Absolute Auto 2500 /uL (1500-7000); Neutrophils Percent Auto 53.9 % (50-75); Platelet Count 149 X10^3/uL (150-400); Red Blood Cell Count 4.86 X10^6/uL (4.0-5.2); Red Cell Distribution Width 14.6 % (11.6-14.8); White Blood Cell Count 4.6 X10^3/uL (4.5-11.0)
[2020-07-05 09:38] LABS: BUN Creatinine Ratio 16.4 (6-22); Blood Urea Nitrogen 9 mg/dL (7-17); Calcium 9.1 mg/dL (8.4-10.2); Carbon Dioxide 28 mmol/L (22-32); Chloride 98 mmol/L (98-107); Estimated Glomerular Filt Rate > 60.0 mL/min (>60); Glucose 149 mg/dL (80-110); HEMOLYSIS 25 (0-50); Potassium 4.6 mmol/L (3.4-5.1); Sodium 133 mmol/L (137-145)
[2020-07-05 10:09] LABS: Thyroid Stimulating Hormone 3.52 uIU/mL (0.47-4.68)
[2020-07-05 10:28] LABS: Vitamin B12 874 pg/mL (239-931)
== END ==
PROVIDERS: Family Provider Nurse Practitioner Family; PCP Internal Medicine; Visit Provider Nurse Practitioner Family
DX: E03.9 Hypothyroidism, unspecified (principal); R45.1 Restlessness and agitation; F02.81 Dementia in other diseases classified elsewhere, unspecified severity, with behavioral disturbance
CPT/HCPCS: 36415; 80048; 82607; 84443; 85025

== ENCOUNTER → 2020-07-21 07:12 | Outpatient (ROUT) | payer MEDICARE, SELFPAY ==
[2020-07-21 08:50] LABS: Alanine Aminotransferase 50 IU/L (<35); Albumin 3.4 g/dL (3.5-5.0); Alkaline Phosphatase 154 U/L (38-126); Aspartate Aminotransferase 39 IU/L (14-36); Bilirubin Total 0.6 mg/dL (0.2-1.3); Bilirubin Unconjugated 0.5 mg/dL (0.0-1.1); Globulin 3.5 g/dL (1.7-4.1); HEMOLYSIS < 15 (0-50); Total Protein 6.9 g/dL (6.3-8.2)
[2020-07-21 09:41] LABS: Vitamin B12 951 pg/mL (239-931)
== END ==
PROVIDERS: Family Provider Nurse Practitioner Family; PCP Internal Medicine; Visit Provider Nurse Practitioner Family
DX: E56.9 Vitamin deficiency, unspecified (principal)
CPT/HCPCS: 36415; 80076; 82607

== ENCOUNTER → 2020-09-22 07:32 | Outpatient (ROUT) | payer MEDICARE, SELFPAY ==
[2020-09-22 09:10] LABS: Alanine Aminotransferase 79 IU/L (<35); Albumin 3.4 g/dL (3.5-5.0); Alkaline Phosphatase 122 U/L (38-126); Aspartate Aminotransferase 74 IU/L (14-36); Bilirubin Total 0.6 mg/dL (0.2-1.3); Bilirubin Unconjugated 0.5 mg/dL (0.0-1.1); Globulin 3.3 g/dL (1.7-4.1); HEMOLYSIS < 15 (0-50); Total Protein 6.7 g/dL (6.3-8.2)
[2020-09-22 09:58] LABS: Vitamin B12 908 pg/mL (239-931)
== END ==
PROVIDERS: Family Provider Nurse Practitioner Family; PCP Internal Medicine; Visit Provider Nurse Practitioner Family
DX: R74.8 Abnormal levels of other serum enzymes (principal)
CPT/HCPCS: 36415; 80076; 82607

== ENCOUNTER → 2020-11-11 22:32 | Outpatient (ROUT) | payer MEDICARE, SELFPAY ==
[2020-11-11 22:36] LABS: RBC Urine None Seen (0-5/HPF)
[2020-11-11 22:38] LABS: Appearance Urine UA CLEAR; Bilirubin Urine UA NEGATIVE (NEGATIVE); Color Urine UA YELLOW; Glucose Urine UA NEGATIVE (Negative); Ketones Urine UA NEGATIVE (NEGATIVE); Leukocyte Esterase Urine UA 2+ (NEGATIVE); Nitrite Urine UA NEGATIVE (Negative); Occult Blood Urine UA NEGATIVE (Negative); Protein Urine UA NEGATIVE (Negative); Urobilinogen Urine UA 0.2 E.U./dL (0.2)
[2020-11-11 22:44] LABS: pH Urine UA 6.5 (4.5-8.0)
[2020-11-11 22:45] LABS: Bacteria Urine Many (>30); Culture Indicated Urine Specimen Cultured; Squamous Epithelial Cell Urine 1-5 /HPF (0-5/HPF); WBC Urine 10-30/HPF (0-5/HPF)
== END ==
PROVIDERS: Family Provider Nurse Practitioner Family; Visit Provider Nurse Practitioner Family
DX: R30.0 Dysuria (principal)
CPT/HCPCS: 81001; 87077; 87086; 87186

== ENCOUNTER → 2020-12-24 07:46 | Outpatient (ROUT) | payer MEDICARE, SELFPAY ==
[2020-12-24 08:40] LABS: Add Manual Diff / Slide Review NO; Basophils Absolute Auto 0 /uL (0-100); Eosinophils Absolute Auto 100 /uL (0-450); Eosinophils Percent Auto 0.6 % (2-4); Hematocrit 41.9 % (36-46); Lymphocytes Absolute Auto 1100 /uL (1100-4500); Mean Corpuscular HGB Conc 33.3 % (30-36); Mean Corpuscular Hemoglobin 27.6 PG (26-34); Mean Corpuscular Volume 82.9 fL (80-100); Monocytes Absolute Auto 900 /uL (0-900); Monocytes Percent Auto 5.6 % (3-14); Neutrophils Absolute Auto 13200 /uL (1500-7000); Neutrophils Percent Auto 86.8 % (50-75); Platelet Count 197 X10^3/uL (150-400); Red Blood Cell Count 5.06 X10^6/uL (4.0-5.2); Red Cell Distribution Width 15.2 % (11.6-14.8); White Blood Cell Count 15.2 X10^3/uL (4.5-11.0)
[2020-12-24 08:48] LABS: Alanine Aminotransferase 63 IU/L (<35); Albumin 3.1 g/dL (3.5-5.0); Albumin Globulin Ratio 0.8 (1.0-2.8); Alkaline Phosphatase 173 U/L (38-126); Aspartate Aminotransferase 65 IU/L (14-36); BUN Creatinine Ratio 40.7 (6-22); Bilirubin Total 0.9 mg/dL (0.2-1.3); Blood Urea Nitrogen 50 mg/dL (7-17); Calcium 8.8 mg/dL (8.4-10.2); Carbon Dioxide 26 mmol/L (22-32); Chloride 102 mmol/L (98-107); Estimated Glomerular Filt Rate 42.1 mL/min (>60); Globulin 3.7 g/dL (1.7-4.1); Glucose 102 mg/dL (80-110); HEMOLYSIS < 15 (0-50); Sodium 132 mmol/L (137-145); Total Protein 6.8 g/dL (6.3-8.2)
== END ==
PROVIDERS: Family Provider Nurse Practitioner Family; Visit Provider Nurse Practitioner Family
DX: E11.9 Type 2 diabetes mellitus without complications (principal)
CPT/HCPCS: 36415; 80053; 85025

== ENCOUNTER → 2020-12-29 07:30 | Outpatient (ROUT) | payer MEDICARE, SELFPAY ==
[2020-12-29 08:21] LABS: Add Manual Diff / Slide Review NO; Basophils Absolute Auto 0 /uL (0-100); Basophils Percent Auto 0.4 % (0-2); Eosinophils Absolute Auto 100 /uL (0-450); Eosinophils Percent Auto 1.1 % (2-4); Hematocrit 38.4 % (36-46); Hemoglobin 12.5 g/dL (12.0-16.0); Lymphocytes Absolute Auto 1100 /uL (1100-4500); Lymphocytes Percent Auto 11.3 % (25-40); Mean Corpuscular HGB Conc 32.6 % (30-36); Mean Corpuscular Volume 82.8 fL (80-100); Monocytes Absolute Auto 800 /uL (0-900); Monocytes Percent Auto 8.7 % (3-14); Neutrophils Absolute Auto 7600 /uL (1500-7000); Neutrophils Percent Auto 78.5 % (50-75); Platelet Count 324 X10^3/uL (150-400); Red Blood Cell Count 4.64 X10^6/uL (4.0-5.2); Red Cell Distribution Width 14.8 % (11.6-14.8); White Blood Cell Count 9.7 X10^3/uL (4.5-11.0)
[2020-12-29 09:00] LABS: Alanine Aminotransferase 79 IU/L (<35); Albumin 2.8 g/dL (3.5-5.0); Albumin Globulin Ratio 0.8 (1.0-2.8); Alkaline Phosphatase 175 U/L (38-126); Aspartate Aminotransferase 50 IU/L (14-36); Bilirubin Total 0.7 mg/dL (0.2-1.3); Blood Urea Nitrogen 17 mg/dL (7-17); Calcium 8.2 mg/dL (8.4-10.2); Carbon Dioxide 27 mmol/L (22-32); Chloride 96 mmol/L (98-107); Estimated Glomerular Filt Rate > 60.0 mL/min (>60); Globulin 3.6 g/dL (1.7-4.1); Glucose 233 mg/dL (80-110); HEMOLYSIS < 15 (0-50); Potassium 5.1 mmol/L (3.4-5.1); Sodium 126 mmol/L (137-145); Total Protein 6.4 g/dL (6.3-8.2)
== END ==
PROVIDERS: Family Provider Nurse Practitioner Family; Visit Provider Nurse Practitioner Family
DX: D72.829 Elevated white blood cell count, unspecified (principal)
CPT/HCPCS: 36415; 80053; 85025

== ENCOUNTER → 2021-01-19 07:25 | Outpatient (ROUT) | payer MEDICARE, SELFPAY ==
[2021-01-19 08:37] LABS: Alanine Aminotransferase 95 IU/L (<35); Albumin 3.3 g/dL (3.5-5.0); Albumin Globulin Ratio 0.8 (1.0-2.8); Alkaline Phosphatase 317 U/L (38-126); Aspartate Aminotransferase 47 IU/L (14-36); Bilirubin Total 0.7 mg/dL (0.2-1.3); Blood Urea Nitrogen 12 mg/dL (7-17); Calcium 9.2 mg/dL (8.4-10.2); Carbon Dioxide 31 mmol/L (22-32); Chloride 98 mmol/L (98-107); Estimated Glomerular Filt Rate > 60.0 mL/min (>60); Glucose 142 mg/dL (80-110); HEMOLYSIS < 15 (0-50); Potassium 5.3 mmol/L (3.4-5.1); Sodium 131 mmol/L (137-145); Total Protein 7.3 g/dL (6.3-8.2)
== END ==
PROVIDERS: Family Provider Nurse Practitioner Family; Visit Provider Nurse Practitioner Family
DX: E87.1 Hypo-osmolality and hyponatremia (principal); R74.8 Abnormal levels of other serum enzymes; E88.9 Metabolic disorder, unspecified
CPT/HCPCS: 36415; 80053

== ENCOUNTER → 2021-02-02 07:39 | Outpatient (CLI) | payer MEDICARE, SELFPAY ==
--- NOTE | 2021-02-02 07:42 | DI.US.S_ITS ---
PROCEDURE: US ABDOMEN COMPLETE INDICATIONS: RIGHT UPPER QUADRANT PAIN TECHNIQUE: Real-time scanning was performed of the abdominal and retroperitoneal organs, with image documentation. COMPARISON: [facility], CT, ABDOMEN/PELVIS WITH CONTRAST, 08/04/2017, 18:36. [facility], [place], ABDOMEN COMPLETE, 04/22/2012, 8:32. FINDINGS: Liver: Normal in size. Increased in echogenicity. Portal vein demonstrates expected hepatopetal flow. Gallbladder: Prominent size. No stones or sludge. Normal gallbladder wall thickness. No pericholecystic fluid. Negative sonographic Ying's sign. Biliary ducts: Intrahepatic bile ducts are non-dilated. Extrahepatic bile duct caliber measures 6 mm. Normal is 6-7 mm or less in diameter, or 10 mm or less post-cholecystectomy. Pancreas: Visualized portions of the pancreas are sonographically normal. The body and tail are not well seen. Spleen: Prominent in size measuring 13.6 cm. Kidneys: Kidneys are normal in size and echotexture. Right kidney measures 12 cm long; left kidney measures 9.1 cm long. No hydronephrosis or nephrolithiasis. No solid masses. The inferior pole of the left kidney is not well seen. Aorta: Visualized aorta is normal in caliber at less than 3 cm. Mid aorta is not well seen. Iliacs: Not well seen. IVC: Intrahepatic inferior vena cava is patent. IMPRESSION: Exam is technically difficult and somewhat limited by acoustic windows as several structures are not well seen. 1. No acute cholecystitis demonstrated. No gallstones. 2. Increased hepatic echogenicity most consistent with hepatic steatosis. Other forms of hepatocellular disease could have similar appearance. 3. No hydronephrosis. 4. Concern for mild splenomegaly. Dictated by: Uche Peralta M.D. on 02/02/2021 at 9:09 Approved by: Uche Peralta M.D. on 02/02/2021 at 9:15
== END ==
PROVIDERS: Family Provider Nurse Practitioner Family; PCP Nurse Practitioner Family; Referring Provider Nurse Practitioner Family; Visit Provider Nurse Practitioner Family
DX: R11.2 Nausea with vomiting, unspecified (principal); R10.11 Right upper quadrant pain; E87.5 Hyperkalemia
CPT/HCPCS: 36415; 76700; 80053

== ENCOUNTER → 2021-02-02 08:07 | Outpatient (ROUT) | payer MEDICARE, SELFPAY ==
[2021-02-02 08:49] LABS: Alanine Aminotransferase 23 IU/L (<35); Albumin 3.3 g/dL (3.5-5.0); Albumin Globulin Ratio 0.8 (1.0-2.8); Alkaline Phosphatase 153 U/L (38-126); Aspartate Aminotransferase 34 IU/L (14-36); BUN Creatinine Ratio 24.1 (6-22); Bilirubin Total 1.1 mg/dL (0.2-1.3); Blood Urea Nitrogen 19 mg/dL (7-17); Calcium 9.1 mg/dL (8.4-10.2); Carbon Dioxide 28 mmol/L (22-32); Chloride 93 mmol/L (98-107); Estimated Glomerular Filt Rate > 60.0 mL/min (>60); Globulin 4.3 g/dL (1.7-4.1); Glucose 138 mg/dL (80-110); HEMOLYSIS < 15 (0-50); Potassium 4.5 mmol/L (3.4-5.1); Sodium 128 mmol/L (137-145); Total Protein 7.6 g/dL (6.3-8.2)
== END ==
PROVIDERS: Family Provider Nurse Practitioner Family; PCP Nurse Practitioner Family; Visit Provider Nurse Practitioner Family
DX: E87.5 Hyperkalemia (principal); R11.10 Vomiting, unspecified
CPT/HCPCS: 36415; 80053